=== PATIENT | female | born 1955 | race Caucasian/White ===

== ENCOUNTER 2018-08-31 23:41 | Inpatient (IN) | payer OTHER ==
[~2018-08-31] VITALS: Ht 170.2 cm; Wt 81.6 kg
--- OUTSIDE RECORDS SUMMARY | 2018-08-31 23:44 | XMS REPORT ---
Author [facility] Address Unknown Phone Unavailable Care Team Providers Care Coding Compliance Manager Name Role Phone Unavailable Unavailable Payers Payer Name Policy Type Policy Number Effective Date Expiration Date Problems This patient has no known problems. Allergies, Adverse Reactions, Alerts Allergy Name Allergy Type Status Severity Reaction(s) Onset Date Inactive Date Treating Clinician Comments Pentazocine Lactate DA Active [place] 2015-06-18 00:00:00 Penicillins DA Active [place] 2015-06-18 00:00:00 Sulfa (Sulfonamide Antibiotics) DA Active IA 2015-06-18 00:00:00 iodine DA Active [place] 2015-06-18 00:00:00 Medications This patient has no known medications. Results Test Description Test Time Test Comments Text Results Atomic Results Result Comments SCR MAMM BILATERAL CAD DIGITAL 2018-02-11 14:27:03 - SCR MAMM BILATERAL CAD DIGITALBILATERAL DIGITAL SCREENING MAMMOGRAM WITH CAD: 01/30/2018CLINICAL: Asymptomatic. Current mammographic images were evaluated by either a Thermedical M- Vu or a VMware ImageChecker CAD (computer aided detection system). Comparison is made to exam dated 03/31/2013 mammogram - [facility]. There are scattered fibroglandular tissues in both breasts. There are benign appearing calcifications and an intramammary node in the right breast. There also is a benign calcification in the left breast. No suspicious mass, architectural distortion, malignant type calcification, or lymph node abnormality detected. Breast architecture is stable compared to prior exams.IMPRESSION: BENIGNThere is no mammographic evidence of malignancy. Resume annual screening mammography in one year. Rossana covarrubias/hakeem:02/11/2018 14:27:03 Prison Warden: Twan [facility] sent: BIRADS 1-2 Normal Mammogram BI-RADS: 2 Benign
[2018-09-01] VITALS (9 sets, daily range): BP systolic 114–154; BP diastolic 57–82
[2018-09-01] MEDS ORDERED: ALBUTEROL SULF 0.083% NEB SOLN 3 ML NEB NEB STA (00:09)
--- NOTE | 2018-09-01 00:13 | NUR ---
DOUG, RT NOTIFIED OF NEBS
[2018-09-01] MEDS ORDERED: IPRATROPIUM BROMIDE 0.02% 2.5 ML NEB NEB ONE (00:15)
[2018-09-01] MEDS ORDERED: METHYLPREDNISOLONE SOD SUCC 125 MG/2ML VIAL IV ONE (00:15)
--- NOTE | 2018-09-01 00:17 | NUR ---
PT PLACED ON 2L NC SATS 97%
[2018-09-01 00:46] LABS: BILIRUBIN,URINE NEGATIVE (NEGATIVE); CLARITY,URINE CLOUDY (CLEAR); COLOR,URINE YELLOW (YELLOW); KETONES,URINE NEGATIVE (NEGATIVE); LEUKOCYTE ESTERASE ,URINE TRACE (NEGATIVE); NITRITE,URINE NEGATIVE (NEGATIVE); PROTEIN,URINE DIPSTICK 1+ (NEGATIVE); URINE UROBILINOGEN 4 mg/dL (0.2 - 1)
[2018-09-01 00:47] LABS: EOSINOPHILS # (AUTO) 0.1 (0.0-0.4); EOSINOPHILS % 1.3 % (0.0-6.0); LYMPHOCYTES # (AUTO) 1.3 (1.0-3.2); LYMPHOCYTES % 28.6 % (18.0-39.1); MEAN CORPUSCULAR HGB CONC 34.2 g/dL (31-35); MEAN CORPUSCULAR VOLUME 128.7 fL (81-99); MONOCYTES # (AUTO) 0.2 (0.2-0.8); MONOCYTES % 4.4 % (4.4-11.3); NEUTROPHILS # (AUTO) 2.9 (2.1-6.9); PLATELET COUNT 60 x10e3/uL (140-360); RED CELL DISTRIBUTION WIDTH 18.5 % (11.7-14.4)
[2018-09-01 00:56] LABS: INR 1.15; PROTHROMBIN TIME 15.3 seconds (11.9-14.5)
[2018-09-01 00:57] LABS: HEMATOCRIT 19.3 % (34.2-44.1); HEMOGLOBIN 6.6 g/dL (12.0-16.0); PARTIAL THROMBOPLASTIN TIME 39.1 seconds (23.8-35.5)
[2018-09-01 01:04] LABS: BACTERIA,URINE MANY /HPF; EPITHELIAL CELLS,URINE FEW /LPF; RENAL EPITHELIAL CELLS,URINE FEW; TRANSITIONAL EPI CELLS,URINE FEW; WBC,URINE (MAN) 21-50 /HPF (0-5)
[2018-09-01] MEDS ORDERED: PROAIR HFA INH8.5 GM INH (01:05)
[2018-09-01 01:08] LABS: ALANINE AMINOTRANSFERASE 14 IU/L (0-55); ALBUMIN 4.2 g/dL (3.5-5.0); ALBUMIN/GLOBULIN RATIO 1.8 (0.8-2.0); ALKALINE PHOSPHATASE 39 IU/L (40-150); ANION GAP 14.3 mmol/L (8-16); BLOOD UREA NITROGEN 7 mg/dL (7-26); BUN/CREATININE RATIO 11 (6-25); CALCIUM 9.3 mg/dL (8.4-10.2); CARBON DIOXIDE 28 mmol/L (22-29); CHLORIDE 101 mmol/L (98-107); CREATINE KINASE 27 IU/L (29-168); CREATININE, SERUM 0.64 mg/dL (0.57-1.11); EST GLOMERULAR FILTRATION RATE > 60 ML/MIN (60-); GLUCOSE 103 mg/dL (74-118); POTASSIUM 3.3 mmol/L (3.5-5.1); SODIUM 140 mmol/L (136-145)
[2018-09-01] MEDS ORDERED: SODIUM CHLORIDE 0.9% 250ML 250 ML IV ONE (01:15)
--- NOTE | 2018-09-01 01:19 | NUR ---
CONSENT OBTAINED FOR TRANSFUSION OF BLOOD
[2018-09-01] MEDS: NITROFURANTOIN MACROCRYSTALS 100 MG CAP PO SCH ×3 (01:28→17:37)
--- NOTE | 2018-09-01 01:32 | Diagnostic Imaging Report ---
EXAMINATION: CHEST SINGLE (PORTABLE) INDICATION: Short of breath , dizzy, wheezing COMPARISON: None FINDINGS: AP view TUBES and LINES: None. LUNGS: Lungs are well inflated. Lungs are clear. There is perihilar interstitial opacities, consistent with interstitial edema. PLEURA: Trace fluid in the right minor fissure. HEART AND MEDIASTINUM: Cardiac size is mildly enlarged. BONES AND SOFT TISSUES: No acute osseous lesion. Soft tissues are unremarkable. UPPER ABDOMEN: No free air under the diaphragm. IMPRESSION: Mild cardiomegaly and mild pulmonary interstitial edema. Signed by: Baldo Jose DO on 09/01/2018 1:29 AM
[2018-09-01] MEDS ORDERED: FUROSEMIDE INJ 10 MG/ML 4 ML VIAL IV ONE (01:45)
[2018-09-01] MEDS ORDERED: ONDANSETRON HCL INJ 2MG/ML 2ML 2 MG/ML VIAL IV PRN (01:45)
[2018-09-01] MEDS ORDERED: SODIUM CHLORIDE FLUSH 10 ML SYR INJ PRN (01:45)
[2018-09-01] MEDS ORDERED: FUROSEMIDE INJ 10 MG/ML 4 ML VIAL ONE (01:46)
--- NOTE | 2018-09-01 01:56 | NUR ---
pt placed on tele box 23
[2018-09-01] MEDS ORDERED: FUROSEMIDE INJ 10 MG/ML 2 ML VIAL IV ONE (02:00)
--- NOTE | 2018-09-01 02:42 | NUR ---
PATIENT RECEIVED FROM EMERGENCY DEPARTMENT PER STRETCHER AT 0155. SHE'S ALERT AND ORIENTED X4, SHE DENIES PAIN. WHEEZING WITH RHONCHI HEARD ON LUNGS SOUNDS, NON PRODUCTIVE COUGH NOTED AND PATIENT DENIES SHORTNESS OF BREATH. OXYGEN SATURATION 87% ON 2L/NC, SEVERAL DEEP BREATHS TAKEN WITH SATURATION INCREASED TO 90%. SKIN PALE, NO ACTIVE BLEEDING OBSERVED AND PATIENT DENIES VAGINAL OR RECTAL BLEED. ORIENTED TO SURROUNDINGS, CALL LIGHT WITHIN EASY REACH, BED SIDE COMMODE PROVIDED AND BED ALARM ON.
[2018-09-01] MEDS: ALBUTEROL/IPRATROPIUM 3 ML NEB NEB SCH ×6 (03:07→23:20)
--- NOTE | 2018-09-01 03:18 | NUR ---
FIRST UNIT OF BLOOD TRANSFUSION STARTED AT 88ML/HR, PATIENT TOLERATING THE TRANSFUSION WITHOUT ADVERSE EFFECT. WILL MONITOR CLOSELY PER PROTOCOL.
--- NOTE | 2018-09-01 06:48 | NUR ---
BLOOD TRANSFUSION COMPLETED WITHOUT ADVERSE EFFECT, PATIENT ASSISTED TO THE BEDSIDE COMMODE.
[2018-09-01] MEDS: METHYLPREDNISOLONE SOD SUCC 40 MG/ML VIAL 1ML IV SCH ×4 (06:57→23:45)
[2018-09-01] MEDS ORDERED: FUROSEMIDE INJ 10 MG/ML 2 ML VIAL IV PRN ×3 (07:00→13:30)
--- NOTE | 2018-09-01 07:00 | NUR ---
bedside rounds complete, report received from night rn, no distress noted, updated on poc voiced understanding, r ac 20g no ss of infiltration noted, denies pain at this time, call light in reach, bed low/locked position, bedalarm active, will continue to monitor
[2018-09-01 08:38] LABS: CREATINE KINASE 26 IU/L (29-168)
[2018-09-01] MEDS ORDERED: SODIUM CHLORIDE 0.9% 250ML 250 ML ONE (09:34)
--- NOTE | 2018-09-01 09:45 | NUR ---
2ND UNIT OF PRBC'S STARTED, PT MONITORED X 15MINS, TOLERATED WELL, NO SS OF RX NOTED ( CHEST PAIN, BACK PAIN, ITCHING,) NO OTHER CO VOICED CALL LIGHT IN REACH WILL CONTINUE TO MONITOR
[2018-09-01] MEDS ORDERED: POTASSIUM CHLORIDE 20 MEQ TAB CR PO ONE (14:52)
[2018-09-01] MEDS ORDERED: ALBUTEROL SULFATE HFA 8GM INHALATION AEROSOL INH PRN (15:00)
--- NOTE | 2018-09-01 15:49 | History and Physical ---
HISTORY OF PRESENT ILLNESS: The patient is a 63-year-old female with past medical history positive for smoking, history of ulcers in the stomach, came here with fatigue and shortness of breath. She was found to have severe anemia with a hemoglobin of 6.6. She received blood transfusion. She is feeling better. REVIEW OF SYSTEMS: CARDIOVASCULAR: She had chest pain when she came. RESPIRATORY: Shortness of breath. GASTROINTESTINAL: No nausea or vomiting. No diarrhea. No blood in the stool. No black stools. No hematemesis. GENITOURINARY: No frequency or dysuria. ALLERGIES: SHE IS ALLERGIC TO PENTAZOCINE, IODINE, SULFA DRUGS, AND PENICILLIN. SOCIAL HISTORY: She smokes. She does not drink. PAST MEDICAL HISTORY: Positive for peptic ulcer disease. PHYSICAL EXAMINATION: HEART: Regular rhythm. Normal S1, S2 sound. LUNGS: Clear bilaterally. ABDOMEN: Soft. EXTREMITIES: Show no evidence of cyanosis or hematoma. VITAL SIGNS: Blood pressure 152/82, temperature 96.8, heart rate 86 per minute, respiratory rate 18 per minute, and oxygen saturation 92%. LABORATORY STUDIES: On the CBC; white blood count 4.51, hemoglobin 6.6, hematocrit 19.3, platelet count 60,000. PT 15.3, PTT 39.1, INR 1.15. AST 57, ALT 14, total bilirubin 3.2, alkaline phosphatase 139. On the BMP; sodium 140, potassium 3.3, chloride 101, CO2 28, BUN 7, creatinine 0.64, glucose 103. IMPRESSION: 1. Acute anemia, rule out gastrointestinal bleed. 2. Atypical chest pain. 3. Chronic obstructive pulmonary disease exacerbation. PLAN OF TREATMENT: She received 2 units of blood. We are going to follow up CBC. We are going to do a workup for anemia, which include stool guaiac, iron, TIBC, ferritin, vitamin B12, folic acid levels. Gastroenterology consult with Dr. Jose Daniel Aggarwal. She is taking also albuterol and Atrovent q.4 hours, nitrofurantoin, she is taking 100 mg twice a day, Zofran 4 mg q.4 hours as needed, Solu-Medrol 40 mg IV q.6 hours, and we will replace potassium. We are going to recheck potassium, magnesium levels. Have a Cardiology consult with Dr. Leyva for the chest pain. Cardiac enzymes are negative. EKG normal. MD MARIYA Cisneros/RHODA /[id number]
[2018-09-01 16:11] LABS: HEMATOCRIT 23.2 % (34.2-44.1); HEMOGLOBIN 8.2 g/dL (12.0-16.0); LYMPHOCYTES # (AUTO) 0.4 (1.0-3.2); MEAN CORPUSCULAR HEMOGLOBIN 39.8 pg (28-32); MEAN CORPUSCULAR HGB CONC 35.3 g/dL (31-35); MEAN CORPUSCULAR VOLUME 112.6 fL (81-99); MONOCYTES # (AUTO) 0.1 (0.2-0.8); MONOCYTES % 1.1 % (4.4-11.3); NEUTROPHILS # (AUTO) 4.3 (2.1-6.9); NEUTROPHILS % 90.1 % (38.7-80.0); PLATELET COUNT 55 x10e3/uL (140-360); RED BLOOD COUNT 2.06 x10e6/uL (3.6-5.1)
[2018-09-01 16:16] LABS: CREATINE KINASE 33 IU/L (29-168)
[2018-09-01 16:44] LABS: FERRITIN 166.18 ng/mL (4.63-204.00)
[2018-09-01 19:21] LABS: HYPOCHROMASIA SLIGHT; LYMPHOCYTES % (MANUAL) 6 % (19-48); METAMYELOCYTES % (MANUAL) 1 % (0-0); NEUTROPHILS % (MANUAL) 92 % (40-74); PLATELET ESTIMATE MARKEDLY DECREASED; PLATELET MORPHOLOGY COMMENT NORMAL; POIKILOCYTOSIS SLIGHT; RBC MORPHOLOGY COMMENT NORMAL
--- NOTE | 2018-09-01 20:20 | NUR ---
PATIENT RESTING IN BED, SHE DENIES PAIN. WHEEZING AND RHONCHI HEARD ON LUNGS SOUNDS, NON PRODUCTIVE COUGH NOTED AND SHE DENIES SHORTNESS OF BREATH. NO EDEMA NOTED TO THE EXTREMITIES, CALL LIGHT WITHIN EASY REACH, SHE'S INSTRUCTED TO CALL FOR ASSISTANCE NEEDED.
[2018-09-01] MEDS ORDERED: CYANOCOBALAMIN INJ 1,000 MCG/ML VIAL IM ONE (22:30)
[2018-09-01] MEDS ORDERED: FOLIC ACID 1 MG TAB PO ONE (22:45)
[2018-09-02] VITALS (9 sets, daily range): BP systolic 105–135; BP diastolic 53–62
--- NOTE | 2018-09-02 00:37 | Consultation ---
DATE OF CONSULTATION: 09/01/2018 Cardiac consultation REASON FOR CONSULTATION: Chest pain. HISTORY: A 63-year-old lady, who is a smoker. The patient is also known to have "difficulty breathing at times." She takes ProAir p.r.n. She is relatively active. She is sick for the last 3 to 4 months. She is unable to do any activity if any. She does have severe shortness of breath and severe weakness. She came to here because she became very weak, unable to do much activity, quite debilitated, unable to do anything. She is having headache, dizziness and not feeling so well. In the ER, her hemoglobin was 6.6. Surprisingly, the patient denied having any black stool. She does have some discoloration of her stool, but she is on iron supplement as advised by her physician to get some iron [id number]. The patient also complained of chest pain, very vague in characteristic. It is worse recently with her anemia and her weakness. It is in form of chest tightness and shortness of breath and fast heart rate when she does activity. There is no orthopnea, no paroxysmal nocturnal dyspnea. There is no syncope or presyncope. There is no palpitation. Regarding her GI symptoms, she got vague colicky abdominal pain, but she denied having any hematemesis or melena. She claimed her symptoms progressive over the last few months. The patient following admission, she had 2 units packed red cells. She is feeling more comfortable. She is able to do more activity and she is feeling stronger. REVIEW OF SYSTEMS: GENERAL: No fever, no chills. No weight loss. No weight gain. HEENT: Allergies and hay fever, congestion. PULMONARY: Episodes of severe shortness of breath, mainly with change in weather and seasons. She need to take ProAir p.r.n. There is no pleuritic chest pain. CARDIAC: Chest pain on exertion with easy fatigability, shortness of breath and tightness and tachycardia. No orthopnea. No paroxysmal nocturnal dyspnea. GI: The patient denied having hematemesis or melena. No GERD symptoms. She does have vague abdominal colicky pain. : Increased frequency of urination. No dysuria. HEMATOLOGY: No easy bruising or bleeding. ENDOCRINE: No diabetes. ONCOLOGY: No weight loss. No weight gain. No fever. HOME MEDICATIONS: ProAir. ALLERGIES: PENTAZOCINE, IODINE, SULFA, AND PENICILLIN. PAST MEDICAL HISTORY: 1. Reactive airway disease and asthma like problems. 2. Cholecystectomy. 3. Tubal ligation. 4. Tonsillectomy. SOCIAL HISTORY: She is divorcee. She smoked one and half pack a day. She does not drink alcohol. FAMILY HISTORY: Father in his 60s with suicide. Mother of complication of diabetes mellitus and end-stage renal disease with polycystic disease, possible myocardial infarction. She had three brothers. She lost a brother with lung cancer and another brother to diabetes mellitus complication. One sister with few illnesses, but no coronary artery disease. Two children, one son, one daughter and one adopted child. PHYSICAL EXAMINATION: GENERAL: The patient looks to be pale and chronically ill. VITAL SIGNS: Height of 5 feet 7 inches, weight of 180 pounds. Blood pressure 140/60, heart rate of 80, respiratory rate of 18, afebrile. HEENT: Pupils are equal and reactive. NECK: No elevation of jugular venous pulsation. CHEST: Clear to auscultation and percussion. HEART: PMI 5th left intercostal space. Normal first and second heart sounds. ABDOMEN: Soft with good bowel sounds. No organomegaly. No abdominal bruit. EXTREMITIES: No cyanosis, no clubbing, no edema. No delay between pulses. NEUROLOGIC: Awake, alert, oriented. No motor or sensory deficits. LABORATORY DATA: EKG showing sinus tachycardia at 106. No ST-T segment changes. Hemoglobin on admission is 6.6, following transfusion at 8.2. BUN of 7, creatinine of 0.64. ALT and AST are normal. Chest x-ray by report showing mild cardiomegaly, mild interstitial changes. IMPRESSION AND PLAN: 1. Anemia, questionable etiology. 2. Symptomatic anemia leading to shortness of breath, chest tightness, tachycardia, etc. 3. Reactive airway disease, possible asthma. 4. Heavy smoker. 5. Probability of coronary artery disease. Cardiac burk, we will recommend observation on telemetry. The patient is cleared for GI workup, which should be at rest. Regarding her chest pain, this could be demand because of severe anemia and possible underlying heart disease, however, this will be addressed once the anemia and the patient's condition is stabilized. We will follow the patient's progression with you and would like to thank you for the kind referral. MD ELDER Pittman/RHODA /[id number]
[2018-09-02] MEDS: PANTOPRAZOLE 40 MG 10ML VIAL IV SCH ×2 (00:54→16:33)
--- NOTE | 2018-09-02 00:55 | NUR ---
PATIENT CONDITION STABLE, NO PAIN VOICED. 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
[2018-09-02] MEDS: ALBUTEROL/IPRATROPIUM 3 ML NEB NEB SCH ×6 (03:05→23:00)
--- NOTE | 2018-09-02 04:25 | NUR ---
PATIENT IS SOUNDLY ASLEEP, NO RESPIRATORY DISTRESS OBSERVED. SHE'S EASY TO AROUSE, SHE DENIES PAIN.
[2018-09-02] MEDS: METHYLPREDNISOLONE SOD SUCC 40 MG/ML VIAL 1ML IV SCH ×3 (06:31→16:44)
[2018-09-02 07:05] LABS: HEMOGLOBIN 7.1 g/dL (12.0-16.0); LYMPHOCYTES # (AUTO) 0.4 (1.0-3.2); LYMPHOCYTES % 6.3 % (18.0-39.1); MEAN CORPUSCULAR HEMOGLOBIN 40.3 pg (28-32); MEAN CORPUSCULAR HGB CONC 35.9 g/dL (31-35); MEAN CORPUSCULAR VOLUME 112.5 fL (81-99); MONOCYTES # (AUTO) 0.2 (0.2-0.8); MONOCYTES % 2.4 % (4.4-11.3); NEUTROPHILS # (AUTO) 5.6 (2.1-6.9); NEUTROPHILS % 90.3 % (38.7-80.0); PLATELET COUNT 58 x10e3/uL (140-360); RED BLOOD COUNT 1.76 x10e6/uL (3.6-5.1)
[2018-09-02 07:06] LABS: ALANINE AMINOTRANSFERASE 12 IU/L (0-55); ALBUMIN 3.8 g/dL (3.5-5.0); ALBUMIN/GLOBULIN RATIO 1.7 (0.8-2.0); ALKALINE PHOSPHATASE 32 IU/L (40-150); ANION GAP 13.1 mmol/L (8-16); BLOOD UREA NITROGEN 18 mg/dL (7-26); BUN/CREATININE RATIO 25 (6-25); CALCIUM 9.4 mg/dL (8.4-10.2); CARBON DIOXIDE 28 mmol/L (22-29); CHLORIDE 100 mmol/L (98-107); CREATININE, SERUM 0.72 mg/dL (0.57-1.11); EST GLOMERULAR FILTRATION RATE > 60 ML/MIN (60-); GLUCOSE 167 mg/dL (74-118); POTASSIUM 4.1 mmol/L (3.5-5.1); SODIUM 137 mmol/L (136-145)
[2018-09-02 07:11] LABS: HEMATOCRIT 19.8 % (34.2-44.1)
--- NOTE | 2018-09-02 07:15 | NUR ---
notified regarding critical lab of Hct 19.8 and Hgb 7.1. New orders received at this time.
[2018-09-02] MEDS ORDERED: SODIUM CHLORIDE 0.9% 250ML 250 ML IV ONE (07:30)
[2018-09-02] MEDS ORDERED: FOLIC ACID 1 MG TAB PO SCH (09:00)
[2018-09-02] MEDS ORDERED: CYANOCOBALAMIN INJ 1,000 MCG/ML VIAL IM SCH (09:00)
[2018-09-02] MEDS: NITROFURANTOIN MACROCRYSTALS 100 MG CAP PO SCH ×2 (09:48→16:47)
[2018-09-02] MEDS ORDERED: SODIUM CHLORIDE 0.9% 250ML 250 ML ONE ×2 (10:34→18:09)
--- NOTE | 2018-09-02 10:40 | NUR ---
First unit of blood being transfused at this time.
[2018-09-02] MEDS: TIOTROPIUM 18 MCG INH POWDER INH SCH (10:51)
[2018-09-02 12:37] LABS: LYMPHOCYTES % (MANUAL) 9 % (19-48); METAMYELOCYTES % (MANUAL) 1 % (0-0); MONOCYTES % (MANUAL) 1 % (3.4-9.0); NEUTROPHILS % (MANUAL) 89 % (40-74)
[2018-09-02 12:38] LABS: HYPOCHROMASIA MODERATE; PLATELET ESTIMATE MARKEDLY DECREASED; PLATELET MORPHOLOGY COMMENT FEW LARGE; RBC MORPHOLOGY COMMENT NORMAL
--- NOTE | 2018-09-02 13:49 | Diagnostic Imaging Report ---
EXAM: US ABDOMEN COMPLETE DATE: 09/02/2018 12:00 AM INDICATION: Cirrhosis, thrombocytopenia COMPARISON: None TECHNIQUE: Transverse and longitudinal galdamez scale and color doppler sonographic images of the upper abdomen were obtained. FINDINGS: There is no evidence of fluid or masses seen in the area of clinical concern in the right lower quadrant. LIVER 21.1 cm in the right midclavicular line. Increased parenchymal echogenicity of the liver with nodular surface contour, no masses. SPLEEN 13.8 cm in maximum diameter. Normal echogenicity, no masses. GALLBLADDER No gallbladder wall thickening, distension, stone, or pericholecystic fluid. NEgative reported sonographic Argueta's sign. BILE DUCTS No intra nor extra-hepatic biliary dilation. Common bile duct measures 0.4cm PANCREAS: Limited visualization due to overlying bowel gas. RIGHT KIDNEY: 11.0 cm Echogenicity: Normal Collecting System: No hydronephrosis Stones: None Cyst/Mass: None LEFT KIDNEY: 9.6 cm Echogenicity: Normal Collecting System: No hydronephrosis Stones: None Cyst/Mass: None VESSELS: Aorta: Visualized portions are within normal size limits Inferior Vena Cava: Visualized portions are normal Main Portal Vein: 1.6 cm, normal size with hepatopetal flow. FREE FLUID: None IMPRESSION: Hepatomegaly, cirrhotic liver contour, and hepatic steatosis. Mildly enlarged spleen. Signed by: Terrance Madera MD on 09/02/2018 1:45 PM
--- NOTE | 2018-09-02 14:25 | NUR ---
first unit of blood completed at this. Pt tolerated well. No s/s or adverse reactions noted.
--- NOTE | 2018-09-02 18:18 | Progress Note ---
DATE: 09/02/2018 Internal Medicine Progress Note SUBJECTIVE: The patient is feeling a little better. Some shortness of breath today. PHYSICAL EXAMINATION: HEART: Showed regular rhythm. Normal S1, S2 sound. LUNGS: Clear bilaterally. ABDOMEN: Soft. Bowel significantly decreased. LABORATORY DATA: On the BMP; sodium 137, potassium 4.1, chloride 100, CO2 of 28, BUN 18, creatinine 0.72, glucose 167. On the CBC; white blood count 6.19, hemoglobin 7.1, hematocrit 19.8, platelet count 58,000. PT 15.3, INR 1.15, PTT 39.1. AST 28, ALT 12, total bilirubin 2.3, alkaline phosphatase 32. FINAL IMPRESSION: 1. Acute anemia secondary to combination of vitamin B12 deficiency and cirrhosis of the liver. 2. Atypical chest pain. 3. Chronic obstructive pulmonary disease exacerbation. 4. Cirrhosis of the liver, most likely secondary to alcohol abuse. 5. Vitamin B12 deficiency. PLAN OF TREATMENT: We are going to get three more units of blood transfusion. Continue albuterol, Atrovent twice a day, Spiriva 1 inhalation daily. Continue Solu-Medrol 40 mg IV q.6 hours. Continue with vitamin B12 1000 mcg IM daily for a week, once a week for three weeks and once a month for lifetime. We are going to repeat another CBC tomorrow. Dr. Jose Daniel Aggarwal is on the case for Gastroenterology point of view, Dr. Chau Leyva for Cardiology point of view also. He did an echocardiogram, which showed normal ejection fraction. She needs saturation well below 87%. MD MARIYA Cisneros/RHODA /[id number]
--- NOTE | 2018-09-02 18:25 | NUR ---
Second unit of blood initiated at this time.
--- NOTE | 2018-09-02 19:35 | NUR ---
BLOOD TRANSFUSING WITHOUT ADVERSE EFFECT, NO PAIN VOICED. SKIN PALE, AUDIBLE WHEEZING AND RHONCHI HEARD ON LUNGS SOUNDS. NO EDEMA NOTED TO THE EXTREMITIES, CALL LIGHT WITHIN EASY REACH, INSTRUCTED TO CALL FOR ASSISTANCE NEEDED.
--- NOTE | 2018-09-02 20:54 | NUR ---
BLOOD TRANSFUSION COMPLETED WITHOUT ADVERSE EFFECT, PATIENT DENIES DIFFICULTY BREATHING. HOWEVER SHE HAS INCREASE AUDIBLE WHEEZING, WILL NOTIFY THE ATTENDING PHYSICIAN REGARDING LASIX ORDER.
[2018-09-02] MEDS ORDERED: FUROSEMIDE INJ 10 MG/ML 4 ML VIAL IV ONE (21:15)
[2018-09-03] VITALS (7 sets, daily range): BP systolic 122–164; BP diastolic 58–72
--- NOTE | 2018-09-03 00:23 | NUR ---
Pulmonary [id number] Thanks
[2018-09-03] MEDS: PANTOPRAZOLE 40 MG 10ML VIAL IV SCH (00:24)
[2018-09-03] MEDS: METHYLPREDNISOLONE SOD SUCC 40 MG/ML VIAL 1ML IV SCH (00:24)
--- NOTE | 2018-09-03 00:25 | NUR ---
PATIENT CONDITION STABLE, NO PAIN VOICED. DR BRYAN SAW THE PATIENT, NO NEW ORDER RECEIVED.
[2018-09-03] MEDS ORDERED: SODIUM CHLORIDE 0.9% 50ML 50 ML ONE (02:49)
[2018-09-03] MEDS: LEVOFLOXACIN 500MG/D5W 100ML 100 ML IV SCH (02:50)
[2018-09-03] MEDS: ALBUTEROL/IPRATROPIUM 3 ML NEB NEB SCH ×6 (03:15→23:05)
--- NOTE | 2018-09-03 04:00 | NUR ---
NO RESPIRATORY DISTRESS OBSERVED, PATIENT DENIES PAIN. ASSISTED WITH ADLS, CALL LIGHT WITHIN EASY REACH.
[2018-09-03] MEDS: TIOTROPIUM 18 MCG INH POWDER INH SCH (06:00)
--- NOTE | 2018-09-03 06:11 | Consultation ---
DATE OF CONSULTATION: 09/02/2018 Pulmonary Medicine Consult REASON FOR REFERRAL: Shortness of breath. HISTORY OF PRESENT ILLNESS: Ms. Miramontes is a pleasant 63-year-old female with shortness of breath. The patient was admitted to [facility] on September 02, 2018. The patient noted to have some chest tightness. The patient with associated shortness of breath was noted. She only takes ProAir p.r.n., which is from two times a day to twice a week. For last 3 months she is noticing worsening dyspnea. Prior to 3 months, she has unlimited exercise tolerance. The patient in the emergency room had hemoglobin 6.6, although without april bleeding. She was brought to the hospital, admitted and given blood transfusions. I am consulted. The patient does not have a definite diagnosis of COPD per her history. Per medicine, she has never been on home oxygen. She does not have history of asthma. There is intermittent allergies a few days to months. Based she does not take any allergy medicines. GERD is mild. She had echo with 55% to 60% LVEF. PAST MEDICAL HISTORY: Possible COPD, cholecystectomy, tubal ligation, and tonsillectomy. ALLERGIES: PENTAZOCINE, IODINE, SULFA, AND PENICILLIN. SOCIAL HISTORY: No alcohol. No drugs. The patient smoked from age 47 to 63, 1.5 packs per day. 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 She has been retired. The patient lives with a 15-year-old daughter right now. FAMILY HISTORY: 1. Noncontributory to this. 2. Her sister does have COPD. REVIEW OF SYSTEMS: GENERAL: No weight changes. OPHTHALMOLOGIC: No double vision. ENT: No mouth ulcers. ENDOCRINE: No known thyroid disease. LUNGS: No hemoptysis. CARDIAC: No heart attacks known. : No blood in urine. GI: No constipation. DERMATOLOGIC: No rashes. NEUROLOGIC: No seizures. PSYCHIATRIC: No depression. MUSCULOSKELETAL: Only mild arthritis. OBJECTIVE: VITAL SIGNS: Afebrile. Vital signs reviewed per the chart record unremarkable. HEENT: Normocephalic and atraumatic. NECK: Supple. Throat midline. LUNGS: Bilateral air entry is moderate with a few rhonchi, moderate amount heard. CARDIOVASCULAR: S1 and S2. No murmurs, rubs, or gallops. ABDOMEN: Soft and nontender. EXTREMITIES: No clubbing, no cyanosis, no edema. INTEGUMENT: No rash or purpura. Generally able to talk in full sentences, calm in bed. LABORATORY DATA: Labs reviewed per the chart record. Bicarbonate 20, BUN 18, and creatinine 0.7. white count 6, hematocrit 20, and platelets 58. IMAGING: Chest x-ray with mild cardiomegaly and moderate pulmonary interstitial edema. Abdominal ultrasound with hepatomegaly, cirrhosis, hepatic steatosis. IMPRESSION AND PLAN: 1. Dyspnea on exertion, progressive and now limiting. 2. Smoker, suspect chronic obstructive pulmonary disease. 3. Intermittent milder allergies. 4. Abnormal chest radiography, possible pneumonia. 5. Abnormal chest x-ray, possible fluid overload. 6. New diagnosis cirrhosis. 7. Anemia. Check BNP level. Slightly negative fluid balance if feasible. Blood transfusions. In summary, if she had symptoms for 3 months there is a significant chance that anemia could be contributory since it is interesting that this may not have been diagnosed before. However, there is a significant chance of COPD for which she will need outpatient PFTs. She wish to repeat a chest x-ray and if radiographic findings fail to resolve, she will need a CAT scan of the chest. She would consider smoking cessation and I counseled her on this. Check thyroid status. Check alpha-1 antitrypsin, HIV status. The patient has had recordings erratically of various oxygen saturations here in the hospital. She will need close follow her oxygen levels and even a home oxygen evaluation prior to discharge. We will follow up closely. Thank you very much, Dr. Palma for allowing me a chance to participate in care of Mrs. Miramontes. Do not hesitate to contact me if I can help in any way. MD COLLEEN Umaña/RHODA /[id number]
[2018-09-03 06:34] LABS: THYROID STIMULATING HORMONE 0.234 uIU/mL (0.350-4.940)
[2018-09-03 07:10] LABS: BASOPHILS % 0.1 % (0.0-1.0); HEMATOCRIT 24.8 % (34.2-44.1); HEMOGLOBIN 8.6 g/dL (12.0-16.0); LYMPHOCYTES # (AUTO) 0.6 (1.0-3.2); LYMPHOCYTES % 8.6 % (18.0-39.1); MEAN CORPUSCULAR HEMOGLOBIN 36.9 pg (28-32); MEAN CORPUSCULAR HGB CONC 34.7 g/dL (31-35); MEAN CORPUSCULAR VOLUME 106.4 fL (81-99); MONOCYTES # (AUTO) 0.2 (0.2-0.8); MONOCYTES % 2.9 % (4.4-11.3); NEUTROPHILS % 87.2 % (38.7-80.0); RED BLOOD COUNT 2.33 x10e6/uL (3.6-5.1)
[2018-09-03 07:22] LABS: PLATELET COUNT 36 x10e3/uL (140-360)
--- NOTE | 2018-09-03 07:29 | NUR ---
CHANGE OF SHIFT REPORT GIVEN TO THE ONCOMING NURSE, SHE'S TO FOLLOW UP ON THE PLATELET RESULT WITH THE PHYSICIAN.
[2018-09-03 08:29] LABS: HIV 1&2 AB SCREEN NON-REACTIVE (NONREACTIVE)
[2018-09-03] MEDS ORDERED: PREDNISONE 20 MG TAB PO SCH (09:00)
[2018-09-03] MEDS: CYANOCOBALAMIN INJ 1,000 MCG/ML VIAL IM SCH (09:17)
[2018-09-03] MEDS: MULTIVITAMINS/MINERALS TAB PO SCH (09:17)
[2018-09-03] MEDS: NITROFURANTOIN MACROCRYSTALS 100 MG CAP PO SCH ×2 (09:17→16:58)
[2018-09-03] MEDS: FOLIC ACID 1 MG TAB PO SCH (09:17)
--- NOTE | 2018-09-03 11:02 | Diagnostic Imaging Report ---
EXAMINATION: CHEST SINGLE (PORTABLE) INDICATION: CHF. COMPARISON: Chest radiograph 09/01/2018. FINDINGS: TUBES and LINES: None. LUNGS: Lungs are mildly hyperinflated. Mild perihilar and interstitial opacities. PLEURA: Trace right pleural effusion in the minor fissure. HEART AND MEDIASTINUM: The cardiomediastinal silhouette is mildly enlarged. BONES AND SOFT TISSUES: No acute osseous abnormality. UPPER ABDOMEN: No free air under the diaphragm. IMPRESSION: Mild pulmonary interstitial edema. Signed by: Dr. Juvencio Kramer MD on 09/03/2018 10:59 AM
[2018-09-03 11:57] LABS: BAND NEUTROPHILS % (MANUAL) 3 %; LYMPHOCYTES % (MANUAL) 8 % (19-48); MONOCYTES % (MANUAL) 3 % (3.4-9.0); NEUTROPHILS % (MANUAL) 86 % (40-74)
[2018-09-03 11:58] LABS: ANISOCYTOSIS MODERATE; PLATELET ESTIMATE MARKEDLY DECREASED; PLATELET MORPHOLOGY COMMENT NORMAL; POIKILOCYTOSIS S; RBC MORPHOLOGY COMMENT ABNORMAL
[2018-09-03] MEDS ORDERED: ONDANSETRON HCL 4 MG ORAL DISINTEGRATING TAB PO PRN (12:00)
--- NOTE | 2018-09-03 19:25 | Progress Note ---
DATE: 09/03/2018 Internal Medicine Progress Note SUBJECTIVE: The patient is doing better. PHYSICAL EXAMINATION: VITAL SIGNS: Blood pressure 164/70, temperature 97.8, heart rate 81 per minute, respiratory rate 20 per minute, oxygen saturation 96%. HEART: Showed regular rhythm. Normal S1, S2 sound. LUNGS: Clear bilaterally. ABDOMEN: Soft. LABORATORY DATA: On the blood work, we have BMP; sodium 137, potassium 4.1, chloride 100, CO2 28, BUN 18, creatinine 0.72, glucose 167. On the CBC; white blood count 6.89, hemoglobin 8.6, hematocrit 24.8, platelet count 136,000. PT 15.3, INR 1.15, PTT 39.1. AST 20, ALT 12, total bilirubin 2.3, alkaline phosphatase 32. IMPRESSION: 1. Acute anemia secondary to combination of vitamin B12 deficiency and cirrhosis of the liver. 2. Atypical chest pain. 3. Chronic obstructive pulmonary disease exacerbation. 4. Cirrhosis. 5. Vitamin B12 deficiency. PLAN OF TREATMENT: Continue albuterol and Atrovent q.4 hours. Continue Levaquin 500 mg IV daily, nitrofurantoin 100 mg twice a day, folic acid 1 mg daily, vitamin B12 100 mcg IM daily for a week, once a week for a month, and once a month for lifetime. Albuterol inhaler q.4 hours while awake, multivitamin one tablet daily. Continue Spiriva 1 inhalation daily, prednisone 20 mg daily, Zofran 4 mg IV q.4 hours as needed. The patient will have an EGD and colonoscopy done by Dr. Jose Daniel Aggarwal to complete the anemia workup. I explained to the patient the findings and the plan of treatment, so tentative discharge will be this weekend. Dr. Nelson Aggarwal is covering for me this week. MD MARIYA Cisneros/RHODA /[id number]
--- NOTE | 2018-09-03 19:51 | NUR ---
PATIENT SITTING AT THE SIDE OF THE BED, NO RESPIRATORY DISTRESS OBSERVED, SHE DENIES PAIN. NON PRODUCTIVE COUGH NOTED, RHONCHI HEARD ON LUNG SOUNDS. CALL LIGHT WITHIN EASY REACH, SHE'S INSTRUCTED TO CALL FOR ASSISTANCE NEEDED.
[2018-09-04] VITALS (8 sets, daily range): BP systolic 92–129; BP diastolic 52–69
[2018-09-04] MEDS: LEVOFLOXACIN 500MG/D5W 100ML 100 ML IV SCH (00:55)
--- NOTE | 2018-09-04 02:26 | NUR ---
Pulmonary Medicine DATE OF ENCOUNTER: 09/03/2018 SUBJECTIVE: sTABLE breathing 92-99% saturation 2 L/min oxygen CXR with stable edema mild pattern REVIEW OF SYSTEMS: no bleeding, no rash OBJECTIVE: VITAL SIGNS: Vital signs reviewed per the chart record HEENT: Normocephalic and atraumatic. NECK: Supple. Throat midline. LUNGS: Bilateral air entry moderate, few rhonchi CARDIOVASCULAR: S1 and S2. No murmurs, rubs, or gallops. ABDOMEN: Soft and nontender. EXTREMITIES: No clubbing, no cyanosis, no edema. INTEGUMENT: No rash or purpura. Generally able to talk in full sentences, calm in bed. LABORATORY DATA: 7 wbc, 25 hct, 36 plt LDH 3954, BNP 269, b12 13, folate 6.8, tsh low IMAGING: no new updates, except as above IMPRESSION AND PLAN: 1. Dyspnea on exertion, progressive and limiting. 2. Smoker, suspect chronic obstructive pulmonary disease. 3. Intermittent milder allergies. 4. Abnormal chest radiography, possible pneumonia. 5. Abnormal chest x-ray, possible fluid overload. 6. New diagnosis cirrhosis. 7. Anemia. 8. high ldh, low b12/folate/tsh recommend a metabolic evaluation of the patient serum lab abnormalities Slightly negative fluid balance if feasible. As the symptoms have lasted for 3 months there is a significant chance that anemia could be contributory. Due to the chance of COPD, she will need outpatient PFTs. Follow progress after blood transfusion Check chest CT Smoking cessation Follow up alpha-1 antitrypsin. HIV negative Some low oxygen saturations, wean oxygen as tolerated. Home O2 evaluation when time for discharge. Thank you very much, Dr. Palma for allowing me a chance to participate in care of Mrs. Miramontes. Do not hesitate to contact me if I can help in any way.
--- NOTE | 2018-09-04 02:49 | NUR ---
CONDITION STABLE WITHOUT RESPIRATORY DISTRESS. DR BRYAN MADE ROUNDS, NEW ORDER RECEIVED.
[2018-09-04] MEDS: ALBUTEROL/IPRATROPIUM 3 ML NEB NEB SCH ×6 (03:05→22:55)
--- NOTE | 2018-09-04 04:54 | NUR ---
Pulmonary Medicine DATE OF ENCOUNTER: 09/04/2018 SUBJECTIVE: profound blood test abnormalities patient on oxygen by CA now no respiratory distress eating REVIEW OF SYSTEMS: no headaches, no rash OBJECTIVE: VITAL SIGNS: Vital signs reviewed per the chart record GENERAL: NAD, calm HEENT: Normocephalic and atraumatic. NECK: Supple. Throat midline. LUNGS: Bilateral air entry moderate, few rhonchi CARDIOVASCULAR: S1 and S2. No murmurs, rubs, or gallops. ABDOMEN: Soft and nontender. EXTREMITIES: No clubbing, no cyanosis, no edema. INTEGUMENT: No rash or purpura. LABORATORY DATA: no new updates IMAGING: no new updates IMPRESSION AND PLAN: 1. Dyspnea on exertion, progressive and limiting. 2. Smoker, suspect chronic obstructive pulmonary disease. 3. Intermittent milder allergies. 4. Abnormal chest radiography, possible pneumonia. 5. Abnormal chest x-ray, possible fluid overload. 6. New diagnosis cirrhosis. 7. Anemia. 8. high ldh, low b12/folate/tsh recommend a metabolic evaluation of the patient serum lab abnormalities as per GI and hematology Slightly negative fluid balance if feasible. As the symptoms have lasted for 3 months there is a significant chance that anemia is the predominant contributor --due to profound findings, will hold off on much pulmonary assessment -----UNLESS patient remains significantly hypoxemic, as she is still on 3 l/min oxygen (can consider a CT chest) Due to the chance of COPD, she will need outpatient PFTs. Follow progress after blood transfusion Smoking cessation Follow up alpha-1 antitrypsin. HIV negative Some low oxygen saturations, wean oxygen as tolerated. Home O2 evaluation when time for discharge. Thank you very much, Dr. Palma for allowing me a chance to participate in care of Mrs. Miramontes. Do not hesitate to contact me if I can help in any way.
[2018-09-04 07:23] LABS: BILIRUBIN,DIRECT 0.9 mg/dL (0.0-0.5)
[2018-09-04] MEDS: TIOTROPIUM 18 MCG INH POWDER INH SCH (08:23)
[2018-09-04] MEDS: MULTIVITAMINS/MINERALS TAB PO SCH (09:29)
[2018-09-04] MEDS: CYANOCOBALAMIN INJ 1,000 MCG/ML VIAL IM SCH (09:29)
[2018-09-04] MEDS: PREDNISONE 20 MG TAB PO SCH (09:29)
[2018-09-04] MEDS: FOLIC ACID 1 MG TAB PO SCH (09:29)
[2018-09-04] MEDS: NITROFURANTOIN MACROCRYSTALS 100 MG CAP PO SCH ×2 (09:29→17:29)
--- NOTE | 2018-09-04 19:40 | NUR ---
PATIENT SITTING AT THE SIDE OF THE BED, NO RESPIRATORY DISTRESS OBSERVED. NO ACTIVE BLEED NOTED, SHE DENIES PAIN. CALL LIGHT WITHIN EASY REACH, SHE'S INSTRUCTED TO CALL FOR ASSISTANCE NEEDED.
[2018-09-05] VITALS (7 sets, daily range): BP systolic 95–120; BP diastolic 46–67
[2018-09-05] MEDS: LEVOFLOXACIN 500MG/D5W 100ML 100 ML IV SCH ×2 (00:28→23:39)
--- NOTE | 2018-09-05 00:32 | NUR ---
PATIENT ASLEEP, SHE'S EASY TO AROUSE. NO RESPIRATORY DISTRESS OBSERVED, SHE DENIES PAIN.
[2018-09-05] MEDS: ALBUTEROL/IPRATROPIUM 3 ML NEB NEB SCH ×6 (02:20→23:00)
--- NOTE | 2018-09-05 04:23 | NUR ---
ROUNDS MADE, PATIENT OBSERVED SOUNDLY ASLEEP WITHOUT RESPIRATORY DISTRESS. DR Monique BRYAN SAW THE PATIENT EARLIER, PLAN IS FOR PLATELET TRANSFUSION AND EGD ON THURSDAY.
[2018-09-05 05:30] LABS: EOSINOPHILS % 0.8 % (0.0-6.0); HEMATOCRIT 25.8 % (34.2-44.1); HEMOGLOBIN 8.7 g/dL (12.0-16.0); LYMPHOCYTES # (AUTO) 2.4 (1.0-3.2); LYMPHOCYTES % 48.9 % (18.0-39.1); MEAN CORPUSCULAR HGB CONC 33.7 g/dL (31-35); MEAN CORPUSCULAR VOLUME 109.8 fL (81-99); MONOCYTES # (AUTO) 0.4 (0.2-0.8); MONOCYTES % 8.6 % (4.4-11.3); NEUTROPHILS % 41.1 % (38.7-80.0); RED BLOOD COUNT 2.35 x10e6/uL (3.6-5.1)
[2018-09-05 05:38] LABS: PLATELET COUNT 33 x10e3/uL (140-360)
[2018-09-05 05:49] LABS: ALANINE AMINOTRANSFERASE 40 IU/L (0-55); ALBUMIN 3.5 g/dL (3.5-5.0); ALBUMIN/GLOBULIN RATIO 1.8 (0.8-2.0); ALKALINE PHOSPHATASE 33 IU/L (40-150); ANION GAP 11.2 mmol/L (8-16); BLOOD UREA NITROGEN 14 mg/dL (7-26); BUN/CREATININE RATIO 20 (6-25); CALCIUM 9.1 mg/dL (8.4-10.2); CARBON DIOXIDE 32 mmol/L (22-29); CHLORIDE 102 mmol/L (98-107); CREATININE, SERUM 0.69 mg/dL (0.57-1.11); EST GLOMERULAR FILTRATION RATE > 60 ML/MIN (60-); GLUCOSE 92 mg/dL (74-118); POTASSIUM 4.2 mmol/L (3.5-5.1); SODIUM 141 mmol/L (136-145)
[2018-09-05 07:56] LABS: EOSINOPHILS % (MANUAL) 1 % (0-7); LYMPHOCYTES % (MANUAL) 52 % (19-48); MONOCYTES % (MANUAL) 6 % (3.4-9.0); NEUTROPHILS % (MANUAL) 41 % (40-74)
[2018-09-05 07:57] LABS: PLATELET ESTIMATE MARKEDLY DECREASED; PLATELET MORPHOLOGY COMMENT NORMAL; RBC MORPHOLOGY COMMENT ABNORMAL
[2018-09-05 07:58] LABS: ANISOCYTOSIS MODERATE; HYPOCHROMASIA MODERATE
[2018-09-05] MEDS: TIOTROPIUM 18 MCG INH POWDER INH SCH (08:00)
[2018-09-05] MEDS: MULTIVITAMINS/MINERALS TAB PO SCH (08:53)
[2018-09-05] MEDS: NITROFURANTOIN MACROCRYSTALS 100 MG CAP PO SCH ×2 (08:53→17:13)
[2018-09-05] MEDS: FOLIC ACID 1 MG TAB PO SCH (08:53)
[2018-09-05] MEDS: CYANOCOBALAMIN INJ 1,000 MCG/ML VIAL IM SCH (08:53)
[2018-09-05] MEDS: PREDNISONE 20 MG TAB PO SCH (08:54)
[2018-09-05] MEDS ORDERED: DOCUSATE SODIUM 100 MG CAP PO PRN (09:30)
--- NOTE | 2018-09-05 11:14 | Progress Note ---
DATE: 09/05/2018 SUBJECTIVE: The patient has much less dyspnea. Her breathing is improved. She still has a low platelet count. PHYSICAL EXAMINATION: VITAL SIGNS: The patient is afebrile. The vital signs are stable. HEENT: Shows no facial swelling or erythema. CARDIAC: Reveals a regular rate and rhythm with a normal S1 and S2. LUNGS: Auscultation of lungs reveals clear breath sounds bilaterally. There is no wheezing. ABDOMEN: Soft, nontender. There is no rebound or guarding. EXTREMITIES: There is no leg edema. IMPRESSION: 1. Chronic obstructive pulmonary disease with acute exacerbation. 2. Thrombocytopenia. 3. Possible liver disease. PLAN: 1. The patient is scheduled for a platelet transfusion and a GI evaluation. 2. Taper steroids. 3. Wean oxygen. 4. Continue bronchodilators. Luis Armando Vance MD LM/MODL /[id number]
--- NOTE | 2018-09-05 17:38 | NUR ---
SPOKE WITH MD Masoud BRYAN WHO STATES HE WANTS TO GIVE A JUMBO BAG OF PLATELETS AN HOUR BEFORE EGD. ORDERS ON COMPUTER NOW . NOTIFIED LAB ABOUT PLATELET BAG ON HOLD WILL GET PT TO SIGN CONSENT AT THIS TIME
--- NOTE | 2018-09-05 18:45 | NUR ---
Report received from JOSUÉ Guerra at this time. Pt sleeping in bed at this time and appears to be in no distress. Call light is in reach of pt.
[2018-09-05] MEDS ORDERED: SODIUM CHLORIDE 0.9% 250ML 250 ML ONE (23:50)
[2018-09-05] MEDS ORDERED: PHYTONADIONE 10 MG/ML AMP SQ STA (23:55)
[2018-09-06] VITALS (7 sets, daily range): BP systolic 95–145; BP diastolic 51–65
--- NOTE | 2018-09-06 01:26 | NUR ---
Pt resting comfortably in bed. Pt denies pain. Bed is in low locked position and call light is in reach.
[2018-09-06] MEDS: ALBUTEROL/IPRATROPIUM 3 ML NEB NEB SCH ×6 (03:00→23:30)
[2018-09-06 05:50] LABS: EOSINOPHILS # (AUTO) 0.2 (0.0-0.4); HEMATOCRIT 25.8 % (34.2-44.1); HEMOGLOBIN 8.6 g/dL (12.0-16.0); LYMPHOCYTES # (AUTO) 1.6 (1.0-3.2); LYMPHOCYTES % 41.1 % (18.0-39.1); MEAN CORPUSCULAR HEMOGLOBIN 36.9 pg (28-32); MEAN CORPUSCULAR HGB CONC 33.3 g/dL (31-35); MEAN CORPUSCULAR VOLUME 110.7 fL (81-99); MONOCYTES # (AUTO) 0.5 (0.2-0.8); MONOCYTES % 12.6 % (4.4-11.3); NEUTROPHILS # (AUTO) 1.6 (2.1-6.9); NEUTROPHILS % 40.8 % (38.7-80.0); RED BLOOD COUNT 2.33 x10e6/uL (3.6-5.1)
[2018-09-06] MEDS: TIOTROPIUM 18 MCG INH POWDER INH SCH (06:00)
[2018-09-06 06:11] LABS: PLATELET COUNT 33 x10e3/uL (140-360)
--- NOTE | 2018-09-06 07:10 | NUR ---
Report given to JOSUÉ Berg at this time.
[2018-09-06] MEDS: CYANOCOBALAMIN INJ 1,000 MCG/ML VIAL IM SCH (08:45)
[2018-09-06] MEDS: MULTIVITAMINS/MINERALS TAB PO SCH (08:45)
[2018-09-06] MEDS: FOLIC ACID 1 MG TAB PO SCH (08:45)
[2018-09-06] MEDS: NITROFURANTOIN MACROCRYSTALS 100 MG CAP PO SCH ×2 (08:45→15:17)
[2018-09-06] MEDS: PREDNISONE 10 MG TAB PO SCH (08:45)
[2018-09-06] MEDS ORDERED: SODIUM CHLORIDE 0.9% 250ML 250 ML ONE (09:56)
[2018-09-06 10:49] LABS: LYMPHOCYTES % (MANUAL) 38 % (19-48); MONOCYTES % (MANUAL) 11 % (3.4-9.0); NEUTROPHILS % (MANUAL) 51 % (40-74)
[2018-09-06 10:51] LABS: PLATELET MORPHOLOGY COMMENT NORMAL; RBC MORPHOLOGY COMMENT ABNORMAL
[2018-09-06 10:52] LABS: ANISOCYTOSIS MODERATE; PLATELET ESTIMATE MARKEDLY DECREASED
--- NOTE | 2018-09-06 15:05 | Consultation ---
DATE OF CONSULTATION: 09/03/2018 HISTORY OF PRESENT ILLNESS: Ms. Miramontes is a 63-year-old white female, referred to me for evaluation of anemia and thrombocytopenia. The patient had presented with extreme weakness, subsequently was found to have a fairly low hemoglobin, subsequently referred for evaluation of anemia. The patient had progressive shortness of breath. SOCIAL HISTORY: History of excessive smoking. FAMILY HISTORY: Noncontributory. ALLERGIES: REPORTED: 1. PENTAZOCINE. 2. IODINE. 3. SULFA. 4. PENICILLIN. MEDICATIONS: At this time consists of: 1. Prednisone 10 mg a day. 2. Nitrofurantoin. 3. Multivitamin. 4. Folic acid. 5. Cyanocobalamin. 6. Albuterol inhalation. 7. Levaquin. REVIEW OF SYSTEMS: HEENT: Normal. CARDIAC: Normal. RESPIRATORY: History of shortness of breath. GI: At the present time, diagnosis of cirrhosis. : Normal. MUSCULOSKELETAL: Normal. SKIN: Normal. BREASTS: Normal. NEUROENDOCRINE: Normal. PHYSICAL EXAMINATION: GENERAL: Remarkable female, anemic, no palpable adenopathy. HEART: Within normal limits. LUNGS: Clear. BREASTS: Normal. ABDOMEN: Soft. RECTAL: Deferred. CENTRAL NERVOUS SYSTEM: Normal. EXTREMITIES: Essentially normal. LABORATORY DATA: Shows a hemoglobin of 6.6, hematocrit 19.3, extremely high MCV of 128.7, MCHC reported normal at 34.2, RDW slightly high at 18.5 with white count of 4510, differential 60% neutrophils. The patient is not spilling any immature forms. Platelets are low at 60,000. Chemistry shows a low vitamin B12 level of 13. The patient's bilirubin is high at 3.2, SGOT high at 57, SGPT 14, alkaline phosphatase is low at 39. The patient's LDH is high at 3954. TSH low at 0.234. The patient's total proteins are low at 5.4, albumin low at 1.9. Ultrasound of the abdomen shows cirrhotic liver, mildly enlarged spleen. IMPRESSION: 1. Pernicious anemia. 2. Thrombocytopenia because of cirrhosis of liver and also ineffective erythropoiesis. 3. Cardiomegaly with interstitial edema by chest x-ray. 4. Cirrhosis of liver. 5. Splenomegaly. 6. Hypocalcemia. 7. Hypoproteinemia. 8. Hypoalbuminemia. PLAN, COMMENTS, AND SUGGESTIONS: Suggest B12. Because of high LDH, MARKUS was done. The MARKUS was essentially negative. Retic count is low less than 3%. This is ineffective erythropoiesis and has a high LDH since the large cells cannot come out of the bone marrow and they burst open. Continue B12 every day 1000 mcg IM and after weekly, after monthly lifetime. The thrombocytopenia again is because of pernicious anemia and also cirrhosis of liver. GI consultation has been done. Thank you very much for allowing me to participate in management of this patient. I will confine myself to Hematology. I will follow this patient, as attending would call and make an appointment with me. MD TITO Perez/SEANL /[id number] cc: Jose Daniel Aggarwal MD
--- NOTE | 2018-09-06 15:30 | Operative Report ---
DATE OF PROCEDURE: 09/06/2018 SURGEON: Jose Daniel Aggarwal MD PROCEDURE: EGD with biopsies and esophageal dilatation. INDICATIONS FOR EGD: Dysphagia to solids, anemia. MEDICATIONS: The patient was done under MAC, please see anesthesiologist's note. PROCEDURE IN DETAIL: With the patient in left lateral decubitus position, flexible fiberoptic Olympus gastroscope was introduced into the esophagus under direct visualization without any difficulty. There was some patchy erythema noted in distal esophagus. A mild stricture was noted at the GE junction that was dilated to size 52-Macedonian Alvarez. The scope was then advanced with ease into the stomach traversing a moderate-sized hiatal hernia. The mucosa overlying the antrum and the body revealed some diffuse intense erythema and moderate edema. Biopsies were obtained, sent to stain for H pylori. A minute polyp was noted in the mid body along the greater curvature and that was partially excised with cold biopsy forceps. The pylorus was of normal contour and shape, it was intubated with ease and the scope was advanced all the way to the second portion of the duodenum. Biopsies were obtained from the second portion and duodenal bulb to rule out sprue. The scope was then withdrawn back into the stomach and retroflexed and the previously described hiatal hernia was also noted in the retroflexed position. The fundus overall appeared to be within normal limits. The scope was then straightened out, it was subsequently withdrawn patient tolerated the procedure well. IMPRESSION: 1. Distal esophagitis. 2. Esophageal stricture at GE junction, dilated to size 52-Macedonian Alvarez. 3. Moderate size hiatal hernia. 4. Gastritis, biopsied. Biopsies sent to stain for Helicobacter pylori. 5. Gastric polyp midbody, greater curvature, partially excised with the cold biopsy forceps. 6. Rule out sprue. PLAN: Follow up histology. Continue current therapy. The patient will need a colonoscopy which can be done electively on an outpatient basis. Jose Daniel Aggarwal MD [facility]/SEANL /[id number] cc: Morales Palma MD
--- NOTE | 2018-09-06 15:30 | Progress Note ---
DATE: 09/06/2018 Pulmonary Progress Note SUBJECTIVE: I am covering for Dr. Goodson today. The oxygen is decreased to 2 L. She is resting comfortably. She has an upper endoscopy that showed some gastritis. PHYSICAL EXAMINATION: VITAL SIGNS: Stable. HEENT: No facial swelling or erythema. CARDIAC: Regular rate and rhythm with a normal S1, S2. There are no murmurs or rubs. LUNGS: Auscultation of the lungs reveals clear breath sounds bilaterally. There is no wheezing. ABDOMEN: Soft, nontender. There is no rebound or guarding. IMPRESSION: 1. Cirrhosis of the liver from unclear etiology. 2. Thrombocytopenia. 3. Anemia secondary to chronic blood loss. 4. Chronic obstructive pulmonary disease. PLAN: 1. Complete evaluation for liver disease. 2. Await results of alpha-1 antitrypsin level. 3. Bronchodilators as needed. 4. Wean oxygen. 5. Outpatient pulmonary function tests. Luis Armando Vance MD [facility]/SEANL /[id number]
[2018-09-06] MEDS ORDERED: PROPOFOL IV EMULSION 10 MG/ML 20 ML VIAL ONE (18:01)
[2018-09-06] MEDS ORDERED: MIDAZOLAM HCL 2 MG/2 ML VIAL ONE (18:51)
[2018-09-06] MEDS ORDERED: FENTANYL CITRATE/PF 100MCG/2 ML INJ ONE (18:51)
--- NOTE | 2018-09-06 19:00 | NUR ---
RECEIVED PATIENT IN REPORT. PATIENT RESTING IN BED AT THIS TIME, RESPIRATIONS EVEN AND UNLABORED. NO S&S OF DISTRESS NOTED. BED LOCKED IN LOWEST POSITION. SIDE RAILS UPX2, CALL LIGHT IN REACH.
--- NOTE | 2018-09-06 19:10 | NUR ---
Report given to oncoming nurse of patient's status. Resting in bed with eyes closed. Respirations even and unlabored. Side rails upx2, call light within reach.
--- NOTE | 2018-09-06 20:06 | Progress Note ---
DATE: 09/06/2018 Internal Medicine Progress Note SUBJECTIVE: The patient is doing well. No significant complaint. She had an EGD today, which showed esophagitis and gastritis. PHYSICAL EXAMINATION: VITAL SIGNS: Blood pressure 111/53, temperature 36.4, heart rate 79 per minute, respiratory rate 16 per minute, and oxygen saturation 100%. HEART: Regular rhythm. Normal S1, S2 sound. LUNGS: Clear bilaterally. ABDOMEN: Soft. EXTREMITIES: No evidence of cyanosis or hematoma. LABORATORY DATA: Sodium 141, potassium 4.2, chloride 102, CO2 of 32, BUN 14, creatinine 0.69, glucose 92. On CBC; white blood count 3.97, hemoglobin 8.6, hematocrit 25.8, platelet count 33,000. PT 15.3, INR 1.15, PTT 39.1. AST 33, ALT 40, total bilirubin 1.3, alkaline phosphatase 33. IMPRESSION: 1. Chronic anemia secondary to vitamin B12 deficiency. 2. Vitamin B12 deficiency. 3. Cirrhosis of the liver. 4. Arthritis. 5. Esophagitis. 6. Chronic obstructive pulmonary disease exacerbation. PLAN OF TREATMENT: 1. Continue vitamin B12 supplementation 1000 mcg once a week for three weeks and once a month for lifetime. 2. Colace 100 mg twice a day. 3. She is taking nitrofurantoin 100 mg twice a day. 4. Continue folic acid 1 mg daily. 5. Prednisone 10 mg daily. 6. Albuterol q.4 hours while awake. 7. Albuterol and Atrovent q.4 hours. 8. Levaquin 500 mg IV once a day. 9. Multivitamin one tablet daily. 10. Spiriva 1 inhalation daily. 11. Zofran 4 mg IV q.4 hours as needed. 12. Continue monitoring hemoglobin and hematocrit. 13. The patient received platelet transfusion due to thrombocytopenia. 14. Tentative discharge tomorrow with vitamin B12 supplementation for lifetime. MD MARIYA Cisneros/RHODA /[id number]
--- NOTE | 2018-09-06 22:30 | NUR ---
PATIENT AMBULATING IN HALLWAY AT THIS TIME. STEADY GAIT NOTED.
[2018-09-07] VITALS: BP 115/56
[2018-09-07] MEDS: LEVOFLOXACIN 500MG/D5W 100ML 100 ML IV SCH (01:04)
[2018-09-07] MEDS: ALBUTEROL/IPRATROPIUM 3 ML NEB NEB SCH ×3 (02:50→10:45)
[2018-09-07 04:00] VITALS: BP 100/52
[2018-09-07 05:47] LABS: EOSINOPHILS # (AUTO) 0.2 (0.0-0.4); EOSINOPHILS % 4.5 % (0.0-6.0); HEMATOCRIT 26.1 % (34.2-44.1); HEMOGLOBIN 8.7 g/dL (12.0-16.0); LYMPHOCYTES # (AUTO) 1.5 (1.0-3.2); LYMPHOCYTES % 36.7 % (18.0-39.1); MEAN CORPUSCULAR HEMOGLOBIN 37.2 pg (28-32); MEAN CORPUSCULAR HGB CONC 33.3 g/dL (31-35); MEAN CORPUSCULAR VOLUME 111.5 fL (81-99); MONOCYTES # (AUTO) 0.6 (0.2-0.8); MONOCYTES % 13.7 % (4.4-11.3); NEUTROPHILS # (AUTO) 1.8 (2.1-6.9); NEUTROPHILS % 44.6 % (38.7-80.0); PLATELET COUNT 64 x10e3/uL (140-360); RED BLOOD COUNT 2.34 x10e6/uL (3.6-5.1)
[2018-09-07 06:09] LABS: ALANINE AMINOTRANSFERASE 20 IU/L (0-55); ALBUMIN 3.2 g/dL (3.5-5.0); ALBUMIN/GLOBULIN RATIO 1.5 (0.8-2.0); ALKALINE PHOSPHATASE 42 IU/L (40-150); ANION GAP 8.1 mmol/L (8-16); BLOOD UREA NITROGEN 14 mg/dL (7-26); BUN/CREATININE RATIO 22 (6-25); CALCIUM 8.6 mg/dL (8.4-10.2); CARBON DIOXIDE 30 mmol/L (22-29); CHLORIDE 103 mmol/L (98-107); CREATININE, SERUM 0.63 mg/dL (0.57-1.11); EST GLOMERULAR FILTRATION RATE > 60 ML/MIN (60-); GLUCOSE 97 mg/dL (74-118); POTASSIUM 4.1 mmol/L (3.5-5.1); SODIUM 137 mmol/L (136-145)
[2018-09-07 06:11] LABS: EOSINOPHILS % (MANUAL) 3 % (0-7); LYMPHOCYTES % (MANUAL) 31 % (19-48); MONOCYTES % (MANUAL) 5 % (3.4-9.0); NEUTROPHILS % (MANUAL) 61 % (40-74)
[2018-09-07 06:12] LABS: ANISOCYTOSIS S; PLATELET ESTIMATE MODERATELY DECREASED; PLATELET MORPHOLOGY COMMENT NORMAL; POIKILOCYTOSIS S; RBC MORPHOLOGY COMMENT NORMAL
[2018-09-07] MEDS: TIOTROPIUM 18 MCG INH POWDER INH SCH (06:58)
[2018-09-07] MEDS: NITROFURANTOIN MACROCRYSTALS 100 MG CAP PO SCH (07:57)
[2018-09-07] MEDS: CYANOCOBALAMIN INJ 1,000 MCG/ML VIAL IM SCH (07:57)
[2018-09-07] MEDS: FOLIC ACID 1 MG TAB PO SCH (07:57)
[2018-09-07] MEDS: PREDNISONE 10 MG TAB PO SCH (07:58)
[2018-09-07] MEDS: MULTIVITAMINS/MINERALS TAB PO SCH (07:58)
[2018-09-07 08:00] VITALS: BP 110/56
[2018-09-07 09:38] VITALS: BP 110/56
--- NOTE | 2018-09-07 12:55 | NUR ---
Patient states "I am ready to go. The doctor said I will be leaving today." Paged to receive clearance from GI standpoint
--- NOTE | 2018-09-07 13:40 | NUR ---
Patient remains insisting she is ready to go. Paged . aware nurse awaiting for Dr.M Aggarwal's response on clearance. Per. "patient may discharge, I will be sending rx to preferred pharmacy. Fax me pharmacy information." Information faxed to
[2018-09-07 13:47] VITALS: BP 124/56
--- NOTE | 2018-09-07 14:20 | NUR ---
Left FA IV discontinued. No signs of infiltration noted. 2x2 gauze and tape placed. Taken via wheelchair by PCT to personal car. AAOX4 to time, person, place, situation. Respirations even and unlabored. Discharge instructions and all personal belongings taken with patient. Patient aware rx will be faxed by 's office.
--- NOTE | 2018-09-07 17:11 | Discharge Summary ---
HOSPITAL COURSE: The patient is a 63-year-old female, who claimed that she has no past medical history, heavy smoker, history of hypertension. She was found to have severe anemia secondary to vitamin B12 deficiency. She had an EGD, which showed gastritis, esophagitis, but no evidence of any active bleeding. She has UTI. She got IV antibiotics. She was found to have cirrhosis of the liver. She claims that she never drank alcohol. She was seen by Dr. Jose Daniel Aggarwal for Gastroenterology, who did endoscopy, Dr. Walker for Hematology/Oncology, Dr. Goodson for Pulmonary. PHYSICAL EXAMINATION: HEART: Regular rhythm. Normal S1, S2 sound. LUNGS: Clear bilaterally. ABDOMEN: Soft. FINAL IMPRESSION: 1. Acute anemia secondary to vitamin B12 deficiency and combination of pancytopenia secondary to cirrhosis of the liver. 2. Chronic obstructive pulmonary disease. 3. Cirrhosis of the liver. 4. Urinary tract infection. PLAN OF TREATMENT: Continue current medication regimen. She will continue vitamin B12 supplementation 1000 mcg IM once a week for three weeks and once a month for lifetime. Continue albuterol and Atrovent as needed for shortness of breath. Continue with Lasix and Aldactone and Spiriva. The patient is told to follow up with Gastroenterology for a possibility of be placed on the list for liver transplant also. The patient is told to quit smoking also. Final impression, as I said is anemia secondary to vitamin B12 deficiency, cirrhosis of the liver, pancytopenia secondary to cirrhosis of the liver and vitamin B12 deficiency, and COPD. MD MARIYA Cisneros/RHODA /[id number]
[2018-09-22] MEDS ORDERED: FOLIC ACID PO (08:43)
[2018-09-22] MEDS ORDERED: vitamin B12 PO (08:43)
== END 2018-09-07 14:20 | disposition home or self-care (01) | DRG 811 ==
LOC: ER 23:41 → ERHOLD 09-01 01:45 → MED/SURG 09-01 02:39 → OBSVTOIN 09-02 13:50
PROVIDERS: ADMIT Internal Medicine; ATTEND Internal Medicine
PROC: 0DB68ZX Excision of Stomach, Via Natural or Artificial Opening Endoscopic, Diagnostic (ICD-10-PCS; principal; 2018-09-06 10:57)
PROC: 0DB98ZX Excision of Duodenum, Via Natural or Artificial Opening Endoscopic, Diagnostic (ICD-10-PCS; principal; 2018-09-06 10:57)
PROC: 0D748ZZ Dilation of Esophagogastric Junction, Via Natural or Artificial Opening Endoscopic (ICD-10-PCS; principal; 2018-09-06 10:57)
DX: D51.3 Other dietary vitamin B12 deficiency anemia (principal); I50.43 Acute on chronic combined systolic (congestive) and diastolic (congestive) heart failure; J44.1 Chronic obstructive pulmonary disease with (acute) exacerbation; N39.0 Urinary tract infection, site not specified; D61.818 Other pancytopenia; R07.89 Other chest pain; D50.0 Iron deficiency anemia secondary to blood loss (chronic); Z88.0 Allergy status to penicillin; Z88.2 Allergy status to sulfonamides; Z88.8 Allergy status to other drugs, medicaments and biological substances; Z91.041 Radiographic dye allergy status; F17.210 Nicotine dependence, cigarettes, uncomplicated; Z90.49 Acquired absence of other specified parts of digestive tract; Z82.49 Family history of ischemic heart disease and other diseases of the circulatory system; D69.6 Thrombocytopenia, unspecified; R16.1 Splenomegaly, not elsewhere classified; E83.51 Hypocalcemia; E77.8 Other disorders of glycoprotein metabolism; E88.09 Other disorders of plasma-protein metabolism, not elsewhere classified; K22.2 Esophageal obstruction; K44.9 Diaphragmatic hernia without obstruction or gangrene; K29.70 Gastritis, unspecified, without bleeding; K31.7 Polyp of stomach and duodenum; K70.30 Alcoholic cirrhosis of liver without ascites; F10.10 Alcohol abuse, uncomplicated; K21.0 Gastro-esophageal reflux disease with esophagitis; K52.9 Noninfective gastroenteritis and colitis, unspecified
CPT/HCPCS: 36415; 43239; 43450; 71045; 76700; 80053; 81001; 82103; 82248; 82390; 82550; 82553; 82607; 82728; 82746; 83516; 83540; 83615; 83735; 83880; 84155; 84443; 84466; 84484; 85025; 85045; 85610; 85730; 86022; 86039; 86255; 86850; 86880; 86900; 86920; 87086; 87390; 88305; 88312; 93005; 93306; 94640; 96367; 96372; 96374; 96375; 96376; 99284; G0378; G0433; G0435; J1940; J1956; J2250; J2920; J2930; J3010; J3420; J3430; J7050; J7512; P9016; P9034

== ENCOUNTER → 2018-09-29 | Day surgery (SDC) | payer OTHER ==
[2018-09-22 09:46] LABS: BASOPHILS # (AUTO) 0.1 (0.0-0.1); EOSINOPHILS # (AUTO) 0.2 (0.0-0.4); HEMATOCRIT 38.5 % (34.2-44.1); HEMOGLOBIN 12.6 g/dL (12.0-16.0); LYMPHOCYTES # (AUTO) 1.4 (1.0-3.2); LYMPHOCYTES % 27.7 % (18.0-39.1); MEAN CORPUSCULAR HEMOGLOBIN 34.8 pg (28-32); MEAN CORPUSCULAR HGB CONC 32.7 g/dL (31-35); MEAN CORPUSCULAR VOLUME 106.4 fL (81-99); MONOCYTES # (AUTO) 0.3 (0.2-0.8); MONOCYTES % 6.9 % (4.4-11.3); NEUTROPHILS % 60.2 % (38.7-80.0); PLATELET COUNT 209 x10e3/uL (140-360); RED BLOOD COUNT 3.62 x10e6/uL (3.6-5.1); RED CELL DISTRIBUTION WIDTH 18.6 % (11.7-14.4)
[2018-09-22 10:08] LABS: INR 0.94; PROTHROMBIN TIME 13.1 seconds (11.9-14.5)
[2018-09-22 10:09] LABS: PARTIAL THROMBOPLASTIN TIME 37.8 seconds (23.8-35.5)
[~2018-09-29] MED LIST: FENTANYL CITRATE/PF 100MCG/2 ML INJ ONE; FOLIC ACID PO; HYOSCYAMINE 0.125 MG TAB ONE; MIDAZOLAM HCL 2 MG/2 ML VIAL ONE; PROAIR HFA INH8.5 GM INH; PROPOFOL IV EMULSION 10 MG/ML 50 ML VIAL ONE; vitamin B12 PO
[2018-09-29 13:40] VITALS: BP 128/58
--- NOTE | 2018-09-29 19:56 | Operative Report ---
DATE OF PROCEDURE: SURGEON: Jose Daniel Aggarwal MD PROCEDURES: Colonoscopy and polypectomy. INDICATIONS FOR COLONOSCOPY: Colorectal cancer screening. MEDICATIONS: The patient was done under MAC, please see anesthesiologist's note. PROCEDURE IN DETAIL: With the patient in left lateral decubitus position, a flexible fiberoptic Olympus colonoscope was inserted into the rectum with ease and advanced all the way to the cecum. The sigmoid colon could only be negotiated with a pediatric colonoscope. The mucosa overlying the cecum appeared to be within normal limits. One polyp was hot biopsied, one polyp was snared from the ascending colon polypectomy site of the snared polyp was hemoclipped x2. In the transverse colon, 2 polyps were snared with the largest one hemoclipped x2. An approximately 1.5 cm sessile flat polyp was snared from the descending colon and polypectomy site, was hemoclipped x2 and also tattooed. An additional polyp was removed per snare electrocautery also from the descending colon. Diverticular disease was noted in the sigmoid. The rectum grossly appeared to be within normal limits. The scope was then retroflexed into the distal rectum and small internal hemorrhoids were noted, none of which was actively bleeding. The scope was then straightened out, it was subsequently withdrawn, and the patient tolerated the procedure well. IMPRESSION: 1. Ascending colon polyps, snared, one polypectomy site hemoclipped x2. 2. Transverse colon polyps x2, one polypectomy site hemoclipped x2. 3. Descending colon polyps x2, the largest approximately 1.5 cm in size, sessile, hemoclipped x2 and tattooed. 4. Diverticulosis. 5. Internal hemorrhoids, none actively bleeding. PLAN: Follow up histology. The patient will need a followup colonoscopy in 4 to 6 months to re-evaluate polypectomy sites in the ascending colon and the descending colon to remove any residual polypoid tissue. Jose Daniel Aggarwal MD [facility]/RHODA /[id number] cc: Morales Palma MD
== END | disposition home or self-care (01) ==
LOC: OR 09:23
PROVIDERS: ATTEND Internal Medicine Gastroenterology
DX: D12.4 Benign neoplasm of descending colon (principal); D64.9 Anemia, unspecified; J44.9 Chronic obstructive pulmonary disease, unspecified; K74.60 Unspecified cirrhosis of liver; Z88.2 Allergy status to sulfonamides; Z91.041 Radiographic dye allergy status; Z88.0 Allergy status to penicillin; Z91.013 Allergy to seafood; E53.8 Deficiency of other specified B group vitamins; F17.210 Nicotine dependence, cigarettes, uncomplicated; Z68.28 Body mass index [BMI] 28.0-28.9, adult; R03.0 Elevated blood-pressure reading, without diagnosis of hypertension; K63.5 Polyp of colon; K57.30 Diverticulosis of large intestine without perforation or abscess without bleeding; K64.8 Other hemorrhoids
CPT/HCPCS: 36415; 45381; 45384; 45385; 85025; 85610; 85730; J2250; J2704; J3010; 45378

== ENCOUNTER 2019-04-28 19:24 | Inpatient (IN) | payer OTHER ==
[~2019-04-28] VITALS: Ht 167.6 cm; Wt 81.7 kg
[~2019-04-28 19:24] MED LIST changes: +FAMOTIDINE20 MG PO; -FENTANYL CITRATE/PF 100MCG/2 ML INJ ONE; +FLAGYL500 MG PO; +Guaifenesin/Codeine PO; -HYOSCYAMINE 0.125 MG TAB ONE; +LEVAQUIN500 MG PO; -MIDAZOLAM HCL 2 MG/2 ML VIAL ONE; -PROPOFOL IV EMULSION 10 MG/ML 50 ML VIAL ONE; +PROTONIX40 MG/ML PO; +TESSALON PERLE100 MG PO
[2019-04-28] MEDS ORDERED: IPRATROPIUM BROMIDE 0.02% 2.5 ML NEB NEB STA (19:30)
[2019-04-28] MEDS ORDERED: ALBUTEROL SULF 0.083% NEB SOLN 3 ML NEB NEB STA (19:30)
[2019-04-28] MEDS ORDERED: METHYLPREDNISOLONE SOD SUCC 125 MG/2ML VIAL IV STA (19:30)
[2019-04-28 20:09] LABS: BASOPHILS % 0.3 % (0.0-1.0); EOSINOPHILS # (AUTO) 0.1 (0.0-0.4); EOSINOPHILS % 1.3 % (0.0-6.0); HEMATOCRIT 41.1 % (34.2-44.1); LYMPHOCYTES # (AUTO) 1.6 (1.0-3.2); LYMPHOCYTES % 20.6 % (18.0-39.1); MEAN CORPUSCULAR HEMOGLOBIN 31.5 pg (28-32); MEAN CORPUSCULAR HGB CONC 34.1 g/dL (31-35); MEAN CORPUSCULAR VOLUME 92.4 fL (81-99); MONOCYTES # (AUTO) 0.7 (0.2-0.8); MONOCYTES % 8.8 % (4.4-11.3); NEUTROPHILS # (AUTO) 5.5 (2.1-6.9); NEUTROPHILS % 68.7 % (38.7-80.0); PLATELET COUNT 249 x10e3/uL (140-360); RED BLOOD COUNT 4.45 x10e6/uL (3.6-5.1); RED CELL DISTRIBUTION WIDTH 13.1 % (11.7-14.4)
[2019-04-28 20:15] LABS: INR 1.02
[2019-04-28 20:16] LABS: PARTIAL THROMBOPLASTIN TIME 40.1 seconds (23.8-35.5)
[2019-04-28 20:22] LABS: ALANINE AMINOTRANSFERASE 13 IU/L (0-55); ALKALINE PHOSPHATASE 94 IU/L (40-150); ANION GAP 13.1 mmol/L (8-16); BLOOD UREA NITROGEN 8 mg/dL (7-26); BUN/CREATININE RATIO 11 (6-25); CALCIUM 9.9 mg/dL (8.4-10.2); CARBON DIOXIDE 30 mmol/L (22-29); CHLORIDE 100 mmol/L (98-107); CREATINE KINASE 38 IU/L (29-168); CREATININE, SERUM 0.73 mg/dL (0.57-1.11); EST GLOMERULAR FILTRATION RATE > 60 ML/MIN (60-); GLUCOSE 131 mg/dL (74-118); POTASSIUM 3.1 mmol/L (3.5-5.1); SODIUM 140 mmol/L (136-145)
--- NOTE | 2019-04-28 20:31 | Diagnostic Imaging Report ---
EXAMINATION: CHEST SINGLE (PORTABLE) INDICATION: ERMD ORDER COMPARISON: Chest x-ray and CT chest 02/24/2019 FINDINGS: AP view TUBES and LINES: None. LUNGS: Lungs are well inflated. Unchanged bilateral patchy consolidations suggestive of worsening multiple pneumonia. PLEURA: No pleural effusion or pneumothorax. HEART AND MEDIASTINUM: The cardiomediastinal silhouette is unremarkable. BONES AND SOFT TISSUES: No acute osseous lesion. Soft tissues are unremarkable. UPPER ABDOMEN: No free air under the diaphragm. IMPRESSION: Unchanged bilateral patchy consolidations suggestive of multiple pneumonia. Signed by: Ed Torres MD on 04/28/2019 8:29 PM
[2019-04-28 21:43] LABS: BILIRUBIN,URINE 1+ (NEGATIVE); CLARITY,URINE SL CLOUDY (CLEAR); COLOR,URINE STRAW (YELLOW); KETONES,URINE TRACE (NEGATIVE); LEUKOCYTE ESTERASE ,URINE NEGATIVE (NEGATIVE); NITRITE,URINE NEGATIVE (NEGATIVE); PROTEIN,URINE DIPSTICK 1+ (NEGATIVE); URINE UROBILINOGEN 8 mg/dL (0.2 - 1)
[2019-04-28 21:55] LABS: AMORPHOUS SEDIMENT,URINE MODERATE (FEW); BACTERIA,URINE FEW /HPF; EPITHELIAL CELLS,URINE FEW /LPF
[2019-04-28] MEDS ORDERED: LEVOFLOXACIN 750MG/D5W 150ML 150 ML IV ONE (22:45)
[2019-04-28] MEDS ORDERED: ACETAMINOPHEN 325 MG TAB PO PRN (23:45)
[2019-04-28] MEDS ORDERED: SODIUM CHLORIDE FLUSH 10 ML SYR INJ PRN (23:45)
[2019-04-29] MEDS: METHYLPREDNISOLONE SOD SUCC 40 MG/ML VIAL 1ML IV SCH ×5 (01:00→23:46)
[2019-04-29] MEDS: POTASSIUM CHLORIDE 20 MEQ TAB CR PO STA ×2 (01:00→01:09)
--- NOTE | 2019-04-29 01:00 | NUR ---
Pt moved to ED room 2, placed on hospital bed, remains on monitoring tech, call light in easy reach, bed low/locked, side rails up, will continue to monitor.
[2019-04-29] MEDS: IPRATROPIUM BROMIDE 0.02% 2.5 ML NEB NEB SCH ×5 (03:30→23:45)
[2019-04-29] MEDS: ALBUTEROL SULF 0.083% NEB SOLN 3 ML NEB NEB SCH ×6 (03:30→23:45)
[2019-04-29] MEDS ORDERED: POTASSIUM CHLORIDE 20 MEQ TAB CR PO STA (04:03)
[2019-04-29 04:39] LABS: CREATINE KINASE MB 1.5 ng/mL (0-5.0)
[2019-04-29 07:45] VITALS: BP 115/66
[2019-04-29 07:57] VITALS: BP 115/66
[2019-04-29] MEDS ORDERED: LEVOFLOXACIN 750MG/D5W 150ML IV SCH (09:00)
--- NOTE | 2019-04-29 10:17 | NUR ---
H&P cc: sob/cough HPI: 64yoF, PCP , developed sob/cough for few days; Found to have PNA. Pt recently treated for PNA. PMH: vit B12 anemia; anemia, COPD, cirrhosis, PUD, Acute resp failure, Left PNA, UTI, PSHx: cholecystectomy Allergies; see emr FH/SH; ; currently 2 cigs/day meds; see MAR ROS: no f/c/s/N/V/D/KEENAN/vision changes/back pain/dizziness v/s; revd PE tired appearing BIPAP mask in place ns1s2 COURSE BS soft nt nd no e/t skin dry n. affect labs/meds revd A/P: AECOPD- iv abx; antitussives/loratadine/nebs/O2 Bilateral Multi-lobar pneumonia- iv abx; Cirrhosis- f/u outpt PUD- ppi Physical deconditoning- PT consult Prop: seq/pepcid dispo: f/u; PT consult Oniel Chappell MD, PHD.
[2019-04-29] MEDS ORDERED: DOCUSATE SODIUM 100 MG CAP PO PRN (10:30)
[2019-04-29] MEDS ORDERED: ONDANSETRON HCL INJ 2MG/ML 2ML 2 MG/ML VIAL IV PRN (10:30)
[2019-04-29] MEDS ORDERED: ACETAMINOPHEN 325 MG TAB PO PRN (10:30)
[2019-04-29 11:12] LABS: CREATINE KINASE MB 1.9 ng/mL (0-5.0)
[2019-04-29 13:00] VITALS: BP 124/59
--- NOTE | 2019-04-29 13:00 | NUR ---
PATIENT RECEIVED FROM ER PER STRETCHER. ALERT AND VERBALLY RESPONSIVE, DENIED PAIN AT THIS TIME. SKIN WARM AND DRY TO TOUCH, RESPIRATION EVEN AND UNLABORED WITH O2 AT 2L VIA N/C; ABDOMEN SOFT AND NON DISTENDED. TELEMETRY B[address] BED IN LOWER POSITION, CALL LIGHT AT REACH. INSTRUCTED TO CALL FOR ASSISTANCE NEEDED.
[2019-04-29] MEDS ORDERED: SODIUM CHLORIDE 0.9% 250ML 250 ML ONE (14:16)
[2019-04-29] MEDS: VANCOMYCIN 1GM/NS 250 ML 250 ML IV SCH (14:21)
[2019-04-29] MEDS: AZTREONAM 1 GM/NS 50 ML 50 ML IV SCH ×2 (15:30→21:49)
--- NOTE | 2019-04-29 16:25 | NUR ---
PATIENT SITTING AT BED SIDE EATING SNACK, NO COMPLAIN VOICED. CALL LIGHT AT REACH.
[2019-04-29] MEDS: FAMOTIDINE 20 MG TAB PO SCH (16:30)
--- NOTE | 2019-04-29 17:03 | Diagnostic Imaging Report ---
CT of the chest, without contrast, 04/29/2019. History: Pneumonia. Comparison: Chest x-ray 04/28/2019, CT chest 02/24/2019. Technique: Multidetector CT scanning of the chest was performed from the level of the apices to the upper abdomen without contrast. Coronal and sagittal multiplanar reformations were obtained. RADIATION DOSE: Total DLP: 522 mGy*cm Dose modulation, iterative reconstruction, and/or weight based adjustment of the mA/kV was utilized to reduce the radiation dose to as low as reasonably achievable. Discussion: Evaluation is limited without IV contrast. Chest: The heart is normal in size but the main pulmonary artery is dilated measuring 3.3 cm in diameter. The thoracic aorta is within normal limits for size. Thyroid is unremarkable. A mildly enlarged pretracheal lymph node is present measuring 1.2 cm in short axis diameter, previously measuring 2 cm. Hilar and subcarinal nodes are less prominent. Scattered linear and subsegmental atelectasis are present throughout both lungs without focal consolidation or effusion. Multiple areas of centrilobular nodules previously described have mostly resolved. Limited evaluation of the upper abdomen shows normal adrenal glands. Moderate size hiatal hernia is noted. Bones and soft tissues: No acute abnormality. Degenerative changes are present in the thoracic spine. IMPRESSION: 1. Decreased mediastinal adenopathy. 2. Near resolution of previously seen diffuse centrilobular nodules with scattered areas of atelectasis remaining. No acute pulmonary findings. Signed by: Eliezer Gilbert on 04/29/2019 5:00 PM
--- NOTE | 2019-04-29 17:38 | Diagnostic Imaging Report ---
Modified barium swallow, 04/29/2019. History: Dysphagia. Fluoro time: 1 min. Dose: 1.4 mGy (MARGOTH) Discussion: Fluoroscopy was performed by pathology laboratory technologist. A radiologist was not present for exam. Fluoroscopic observation and imaging of the oral cavity, oropharynx, and hypopharynx was performed in the lateral projection during swallowing of liquids and solids, administered by speech pathology. See speech pathologist report for findings. Signed by: Eliezer Gilbert on 04/29/2019 5:36 PM
--- NOTE | 2019-04-29 19:00 | NUR ---
RECEIVED REPORT FROM DAY NURSE. BEDSIDE REPORT COMPLETE. PATIENT IS RESTING IN BED. BED IS IN LOWEST POSITION AND CALL STARR IS WITHIN REACH. WILL CONTINUE TO MONITOR PATIENT.
[2019-04-29 19:58] LABS: CREATINE KINASE MB 2.3 ng/mL (0-5.0)
[2019-04-29 20:00] VITALS: BP 128/60
[2019-04-29 20:23] VITALS: BP 128/60
--- NOTE | 2019-04-29 22:35 | Consultation ---
DATE OF CONSULTATION: Pulmonary Critical Care Consultation CHIEF COMPLAINT: Fever, dyspnea and congestion. HISTORY OF PRESENT ILLNESS: The patient is a 64-year-old woman. She has a history of liver disease and cirrhosis. She also has a history of COPD. She uses oxygen at home. She was hospitalized at [facility] in February with difficulty breathing and infiltrates on her x-ray. She had tree-in-bud appearance. CT scan is suggestive of atypical infection. She has been unable to follow up as an outpatient due to practical problems. She developed worsening cough and congestion. She subsequently came to the ER with worsening dyspnea. She reported fevers at home. She was found to have infiltrates again on her x-ray and was admitted. She was started on Solu-Medrol and antibiotics. PAST MEDICAL HISTORY: 1. Cirrhosis. 2. Peptic ulcer disease. 3. COPD. 4. Pulmonary infiltrates. 5. Anemia. PAST SURGICAL HISTORY: Noncontributory. SOCIAL HISTORY: The patient quit smoking. She is not an active drinker. ALLERGIES: THE PATIENT IS ALLERGIC TO SULFA, PENICILLINS, IODINE, AND SEAFOOD. FAMILY HISTORY: Noncontributory. REVIEW OF SYSTEMS: She did have some fever at home, but is not febrile here. She has no headache. She has no neck pain. She is not having any chest pain. She does note some cough and congestion. She has some phlegm production. She has dyspnea. She is not having any abdominal pain. She has no nausea or vomiting. She has no leg edema. PHYSICAL EXAMINATION: VITAL SIGNS: The patient is afebrile. Stable. Saturation is 98% on 4 L. HEENT: Shows no facial swelling or erythema. The oropharynx is normal. LYMPHATIC: Shows no submandibular, cervical, or supraclavicular adenopathy. CARDIAC: Reveals regular rate and rhythm with normal S1 and S2. LUNGS: Auscultation of lungs reveals rhonchi bilaterally. There are some crackles at the bases. ABDOMEN: Soft, nontender. There is no rebound or guarding. EXTREMITIES: Show no leg edema or calf tenderness. There is no cyanosis or clubbing. SKIN: Shows no rashes. NEUROLOGICAL: Shows no focal abnormalities. LABORATORY DATA: White blood cell count is 7.9 and hemoglobin is 14. The platelet count is 249. The BUN to creatinine ratio is normal. The other electrolytes within normal limits. RADIOGRAPHIC DATA: Chest x-ray shows persistent bilateral infiltrates. IMPRESSION: 1. Chronic obstructive pulmonary disease with acute exacerbation. 2. Persistent bilateral pulmonary infiltrates suggestive of possible atypical infection or interstitial atypical infection versus recurrent pneumonia. 3. Cirrhosis. 4. Hypokalemia. PLAN: 1. The patient will have repeat CT scan of the chest. 2. Continue Solu-Medrol and current antibiotics. 3. Pending on the CT scan. The patient may require an evaluation for atypical mycobacterial infection. 4. Swallowing evaluation through speech therapy. 5. Continue current regimen for cirrhosis. Luis Armando Vance MD [facility] /[id number]
[2019-04-29] MEDS: ZOLPIDEM TARTRATE 5 MG TAB PO PRN (23:46)
[2019-04-30] VITALS (8 sets, daily range): BP systolic 105–137; BP diastolic 55–63
[2019-04-30] MEDS: ALBUTEROL SULF 0.083% NEB SOLN 3 ML NEB NEB SCH ×6 (03:00→23:25)
[2019-04-30] MEDS: AZTREONAM 1 GM/NS 50 ML 50 ML IV SCH ×3 (05:22→21:08)
[2019-04-30] MEDS: METHYLPREDNISOLONE SOD SUCC 40 MG/ML VIAL 1ML IV SCH ×3 (05:22→21:08)
--- NOTE | 2019-04-30 06:50 | NUR ---
REPORT GIVEN TO DAY NURSE. PATIENT IS RESTING COMFORTABLY IN BED. BED IS IN LOWEST POSITION AND CALL STARR IS WITHIN REACH.
--- NOTE | 2019-04-30 07:12 | NUR ---
PATIENT SITTING UP IN BED PLAYING ON HER PHONE, NO S/S OF DISCOMFORT NOTED. CALL LIGHT AT REACH.
[2019-04-30] MEDS: FAMOTIDINE 20 MG TAB PO SCH ×2 (07:30→17:06)
[2019-04-30] MEDS: IPRATROPIUM BROMIDE 0.02% 2.5 ML NEB NEB SCH ×3 (07:30→19:50)
--- NOTE | 2019-04-30 11:20 | NUR ---
PATIENT AMBULATING IN HALLWAY WITH FAMILY MEMBERS, NO DISTRESS NOTED.
--- NOTE | 2019-04-30 12:01 | NUR ---
IM- progress note O/N see below ROS: no f/c/s/N/V/D/KEENAN/vision changes/back pain/dizziness v/s; revd PE tired appearing BIPAP mask in place ns1s2 COURSE BS soft nt nd no e/t skin dry n. affect labs/meds revd A/P: AECOPD- iv abx; antitussives/loratadine/nebs/O2 Bilateral Multi-lobar pneumonia- iv abx; Cirrhosis- f/u outpt PUD- ppi Physical deconditoning- PT consult Prop: seq/pepcid dispo: f/u; PT consult 04/29 cont care. labs tomorrow Oniel Chappell MD, PHD.
[2019-04-30] MEDS: VANCOMYCIN 1GM/NS 250 ML 250 ML IV SCH (12:04)
[2019-04-30] MEDS ORDERED: ALBUTEROL SULFATE HFA 8GM INHALATION AEROSOL INH PRN (14:00)
--- NOTE | 2019-04-30 14:17 | Progress Note ---
DATE: SUBJECTIVE: The patient states feels better. She has less wheezing. She did have some epigastric pain yesterday. PHYSICAL EXAMINATION: VITAL SIGNS: The patient is afebrile. The vital signs are stable. CARDIAC: Reveals regular rate and rhythm with normal S1 and S2. LUNGS: Auscultation of lungs reveals expiratory wheezing bilaterally. ABDOMEN: Soft and nontender. There is no rebound or guarding. EXTREMITIES: Shows no leg edema or calf tenderness. There is no cyanosis or clubbing. SKIN: Shows no rashes. NEUROLOGICAL: Shows no focal abnormalities. RADIOGRAPHIC DATA: Chest x-ray shows new resolution of previously seen infiltrates. The patient does have emphysema. LABORATORY DATA: Troponin I's are negative. The BUN to creatinine ratio is normal. The white blood cell count is 7.3 and the hemoglobin is 14. The platelet count is 249. IMPRESSION: 1. Chronic obstructive pulmonary disease with acute exacerbation. 2. Cirrhosis. 3. Hypokalemia. PLAN: 1. Continue Solu-Medrol. 2. Continue current antibiotics and await culture results. 3. Continue current liver regimen with input from GI. Luis Armando Vance MD [facility] /[id number]
--- NOTE | 2019-04-30 15:22 | NUR ---
OUT OF BED TO CHAIR TALKING TO FAMILY MEMBER VISITING. CALL LIGHT AT REACH.
[2019-05-01] VITALS (8 sets, daily range): BP systolic 100–134; BP diastolic 50–80
[2019-05-01] MEDS: IPRATROPIUM BROMIDE 0.02% 2.5 ML NEB NEB SCH ×4 (01:55→19:45)
[2019-05-01] MEDS: ALBUTEROL SULF 0.083% NEB SOLN 3 ML NEB NEB SCH ×6 (01:55→23:00)
[2019-05-01] MEDS: AZTREONAM 1 GM/NS 50 ML 50 ML IV SCH ×3 (05:58→20:35)
--- NOTE | 2019-05-01 06:49 | NUR ---
REPORT GIVEN TO DAY NURSE. PATIENT IS RESTING COMFORTABLY IN BED. BED IS IN LOWEST POSITION AND CALL STARR IS WITHIN REACH.
--- NOTE | 2019-05-01 07:10 | NUR ---
PATIENT OUT OF BED TO CHAIR WATCHING TV, NO COMPLAIN VOICED. O2 IN PLACE VIA N/C. CALL LIGHT AT REACH.
[2019-05-01 07:43] LABS: BASOPHILS % 0.2 % (0.0-1.0); EOSINOPHILS % 0.2 % (0.0-6.0); HEMATOCRIT 37.4 % (34.2-44.1); HEMOGLOBIN 12.2 g/dL (12.0-16.0); LYMPHOCYTES # (AUTO) 1.5 (1.0-3.2); LYMPHOCYTES % 12.8 % (18.0-39.1); MEAN CORPUSCULAR HEMOGLOBIN 31.2 pg (28-32); MEAN CORPUSCULAR HGB CONC 32.6 g/dL (31-35); MEAN CORPUSCULAR VOLUME 95.7 fL (81-99); MONOCYTES # (AUTO) 0.4 (0.2-0.8); MONOCYTES % 3.1 % (4.4-11.3); NEUTROPHILS # (AUTO) 9.4 (2.1-6.9); NEUTROPHILS % 82.7 % (38.7-80.0); PLATELET COUNT 276 x10e3/uL (140-360); RED BLOOD COUNT 3.91 x10e6/uL (3.6-5.1); RED CELL DISTRIBUTION WIDTH 13.4 % (11.7-14.4)
[2019-05-01] MEDS: FAMOTIDINE 20 MG TAB PO SCH ×2 (07:50→17:11)
[2019-05-01 08:03] LABS: ANION GAP 12.2 mmol/L (8-16); BLOOD UREA NITROGEN 13 mg/dL (7-26); BUN/CREATININE RATIO 20 (6-25); CALCIUM 9.4 mg/dL (8.4-10.2); CARBON DIOXIDE 28 mmol/L (22-29); CHLORIDE 105 mmol/L (98-107); CREATININE, SERUM 0.64 mg/dL (0.57-1.11); EST GLOMERULAR FILTRATION RATE > 60 ML/MIN (60-); GLUCOSE 123 mg/dL (74-118); MAGNESIUM 1.9 MG/DL (1.3-2.1); POTASSIUM 4.2 mmol/L (3.5-5.1); SODIUM 141 mmol/L (136-145)
[2019-05-01] MEDS: METHYLPREDNISOLONE SOD SUCC 40 MG/ML VIAL 1ML IV SCH ×2 (09:11→20:35)
--- NOTE | 2019-05-01 09:21 | NUR ---
IM- progress note O/N see below ROS: no f/c/s/N/V/D/KEENAN/vision changes/back pain/dizziness v/s; revd PE tired appearing BIPAP mask in place ns1s2 COURSE BS soft nt nd no e/t skin dry n. affect labs/meds revd A/P: AECOPD- iv abx; antitussives/loratadine/nebs/O2 Bilateral Multi-lobar pneumonia- iv abx; Cirrhosis- f/u outpt PUD- ppi Physical deconditoning- PT consult Prop: seq/pepcid dispo: f/u; PT consult 04/29 cont care. labs tomorrow 04/30 cont care; Oniel Chappell MD, PHD.
--- NOTE | 2019-05-01 11:23 | NUR ---
TELEMETRY DISCONTINUED ORDERED. PATIENT IN BED RESTING WITH NO S/S OF DISCOMFORT.
[2019-05-01] MEDS: VANCOMYCIN 1GM/NS 250 ML 250 ML IV SCH (12:30)
--- NOTE | 2019-05-01 14:16 | Progress Note ---
DATE: SUBJECTIVE: The patient feels better. She has less dyspnea and wheezing. PHYSICAL EXAMINATION: VITAL SIGNS: The patient is afebrile. The vital signs are stable. HEENT: Shows no facial swelling or erythema. CARDIAC: Reveals regular rate and rhythm with normal S1 and S2. LUNGS: Auscultation of lungs reveals clear breath sounds bilaterally. There is no wheezing. ABDOMEN: Soft and nontender. There is no rebound or guarding. EXTREMITIES: Shows no leg edema or calf tenderness. IMPRESSION: 1. Chronic obstructive pulmonary disease with acute exacerbation. 2. Cirrhosis. PLAN: 1. Taper steroids. 2. Continue oxygen. 3. Continue current regimen for cirrhosis. Luis Armando Vance MD [facility] /[id number]
--- NOTE | 2019-05-01 15:37 | NUR ---
IV INFILTRATED, REMOVED WITH TIP INTACT. NEW IV 22 GAUGE INSERTED TO RIGHT FOREARM. PATIENT TOLERATED PROCEDURE WELL.
[2019-05-01] MEDS: ZOLPIDEM TARTRATE 5 MG TAB PO PRN (23:46)
[2019-05-02] VITALS: BP 133/59
[2019-05-02] MEDS: IPRATROPIUM BROMIDE 0.02% 2.5 ML NEB NEB SCH ×2 (01:00→05:15)
[2019-05-02] MEDS: ALBUTEROL SULF 0.083% NEB SOLN 3 ML NEB NEB SCH ×2 (03:00→05:15)
[2019-05-02 04:00] VITALS: BP 139/64
[2019-05-02] MEDS: AZTREONAM 1 GM/NS 50 ML 50 ML IV SCH (05:35)
[2019-05-02] MEDS ORDERED: PREDNISONE20 MG PO (05:49)
[2019-05-02] MEDS ORDERED: ZITHROMAX500 MG PO (05:49)
[2019-05-02] MEDS ORDERED: LORATADINE10 MG PO (05:49)
--- NOTE | 2019-05-02 05:55 | NUR ---
D/C Summary Principal Dx: AECOPD- iv abx; antitussives/loratadine/nebs/O2 Bilateral Multi-lobar pneumonia- iv abx; Secondary Dx Cirrhosis- f/u outpt PUD- ppi Physical deconditoning- PT consult Prop: seq/pepcid dispo: f/u; PT consult 04/29 cont care. labs tomorrow 04/30 cont care; d/c home stable f/u pcp 1 week d/c>35mins Oniel Chappell MD, PHD.
[2019-05-02 06:23] LABS: BASOPHILS % 0.2 % (0.0-1.0); HEMATOCRIT 36.9 % (34.2-44.1); HEMOGLOBIN 12.1 g/dL (12.0-16.0); LYMPHOCYTES # (AUTO) 1.6 (1.0-3.2); LYMPHOCYTES % 18.5 % (18.0-39.1); MEAN CORPUSCULAR HEMOGLOBIN 31.3 pg (28-32); MEAN CORPUSCULAR HGB CONC 32.8 g/dL (31-35); MEAN CORPUSCULAR VOLUME 95.3 fL (81-99); MONOCYTES # (AUTO) 0.4 (0.2-0.8); MONOCYTES % 4.1 % (4.4-11.3); NEUTROPHILS # (AUTO) 6.4 (2.1-6.9); NEUTROPHILS % 75.8 % (38.7-80.0); PLATELET COUNT 274 x10e3/uL (140-360); RED BLOOD COUNT 3.87 x10e6/uL (3.6-5.1); RED CELL DISTRIBUTION WIDTH 13.4 % (11.7-14.4)
[2019-05-02 06:46] LABS: ANION GAP 11.2 mmol/L (8-16); BLOOD UREA NITROGEN 10 mg/dL (7-26); BUN/CREATININE RATIO 16 (6-25); CARBON DIOXIDE 30 mmol/L (22-29); CHLORIDE 104 mmol/L (98-107); CREATININE, SERUM 0.64 mg/dL (0.57-1.11); EST GLOMERULAR FILTRATION RATE > 60 ML/MIN (60-); GLUCOSE 126 mg/dL (74-118); MAGNESIUM 1.8 MG/DL (1.3-2.1); POTASSIUM 4.2 mmol/L (3.5-5.1); SODIUM 141 mmol/L (136-145)
--- NOTE | 2019-05-02 07:04 | NUR ---
PATIENT SITTING UP IN BED WATCHING TV, NO DISTRESS NOTED. BED IN LOWER POSITION, CALL LIGHT AT REACH.
--- NOTE | 2019-05-02 07:09 | NUR ---
REPORT GIVEN TO DAY NURSE. PATIENT IS RESTING COMFORTABLY IN BED. BED IS IN LOWEST POSITION AND CALL STARR IS WITHIN REACH.
[2019-05-02] MEDS: FAMOTIDINE 20 MG TAB PO SCH (07:30)
[2019-05-02 07:50] VITALS: BP 115/56
[2019-05-02 07:52] VITALS: BP 115/56
[2019-05-02] MEDS: METHYLPREDNISOLONE SOD SUCC 40 MG/ML VIAL 1ML IV SCH (08:45)
--- NOTE | 2019-05-02 09:15 | NUR ---
PATIENT DISCHARGED HOME. DISCHARGE INSTRUCTIONS, PRESCRIPTIONS, AND FOLLOW UP GIVEN TO PATIENT, SHE VERBALIZED UNDERSTANDING. IV TO RIGHT FOREARM REMOVED WITH TIP INTACT. ALL PERSONAL ITEMS TAKEN WITH PATIENT. REFUSED WHEEL CHAIR, BUT WAS ACCOMPANIED TO FRONT LOBBY BY HOSPITAL STAFF IN STABLE CONDITION.
== END 2019-05-02 09:10 | disposition home or self-care (01) | DRG 190 ==
LOC: ER 19:24 → ERHOLD 23:42 → MED/SURG3 04-29 12:50
PROVIDERS: ADMIT Internal Medicine; ATTEND Internal Medicine
DX: J44.1 Chronic obstructive pulmonary disease with (acute) exacerbation (principal); J18.1 Lobar pneumonia, unspecified organism; J44.0 Chronic obstructive pulmonary disease with (acute) lower respiratory infection; Z87.01 Personal history of pneumonia (recurrent); K27.9 Peptic ulcer, site unspecified, unspecified as acute or chronic, without hemorrhage or perforation; K74.60 Unspecified cirrhosis of liver; E87.6 Hypokalemia
CPT/HCPCS: 36415; 71045; 71250; 74230; 80048; 80053; 81001; 82550; 82553; 83735; 83880; 84132; 84484; 85025; 85610; 85730; 87040; 87400; 93005; 99284; J2920; J2930; J3370; J7050

== ENCOUNTER → 2019-12-21 | Outpatient (CLI) | payer OTHER ==
[~2019-12-21] MED LIST changes: +LORATADINE10 MG PO; +PREDNISONE20 MG PO; +ZITHROMAX500 MG PO
--- NOTE | 2019-12-21 11:04 | Diagnostic Imaging Report ---
CT of the chest, without contrast. History: COPD, cough, right middle lobe atelectasis. Comparison: CT chest without contrast from 04/29/2019, 02/24/2019. Technique: Multidetector CT scanning of the chest was performed from the level of the apices to the upper abdomen without contrast. Coronal and sagittal multiplanar reformations were obtained. RADIATION DOSE: Total DLP: 593.04 mGy*cm Dose modulation, iterative reconstruction, and/or weight based adjustment of the mA/kV was utilized to reduce the radiation dose to as low as reasonably achievable. FINDINGS: The thyroid and remaining visualized structures of the base the neck demonstrate no significant abnormalities. The thoracic aorta is normal in course and caliber with atherosclerotic calcifications within its course and branch vessels including the coronary arteries.. The heart is not enlarged. There is no abnormal pericardial fluid present. The main pulmonary artery is prominent measuring 3.4 cm in diameter, unchanged. There are stable mildly prominent mediastinal lymph nodes. A precarinal lymph node measures 1.2 cm in short axis, previously 1.2 cm. There is no abnormal axillary or hilar lymph node enlargement. The trachea and proximal airways are patent. Bandlike opacity noted within the right middle lobe suggestive of subsegmental atelectasis. There has been interval resolution of the previously identified centrilobular nodular opacities. There is no evidence for large focal consolidation, pneumothorax, new/suspicious nodule, or pleural effusion. Moderate size hiatal hernia again noted. Limited views of the upper abdominal contents otherwise demonstrate no significant abnormalities. The osseous structures demonstrate stable degenerative changes without evidence for acute fracture or destructive process. The extrathoracic soft tissues are unremarkable. IMPRESSION: Bandlike opacity identified within the right middle lobe suggestive of subsegmental atelectasis. No evidence for large focal consolidation or other acute intrathoracic process. Resolution of previously visualized centrilobular nodular opacities. Signed by: Dr. Micah Martel MD on 12/21/2019 11:01 AM
== END ==
LOC: CT 09:50
PROVIDERS: ATTEND Internal Medicine Critical Care Medicine
DX: R05 Cough (principal); J98.11 Atelectasis; J44.9 Chronic obstructive pulmonary disease, unspecified
CPT/HCPCS: 71250

== ENCOUNTER 2020-07-02 17:04 | Inpatient (IN) | payer OTHER ==
[~2020-07-02] VITALS: Ht 170.2 cm; Wt 88.9 kg
[2020-07-02] MEDS: ALBUTEROL/IPRATROPIUM 3 ML NEB NEB SCH (00:15)
[~2020-07-02 17:04] MED LIST changes: +vitamin B12 IM; -vitamin B12 PO
[2020-07-02] MEDS ORDERED: ALBUTEROL SULF 0.083% NEB SOLN 3 ML NEB NEB STA (17:28)
[2020-07-02] MEDS ORDERED: IPRATROPIUM BROMIDE 0.02% 2.5 ML NEB NEB ONE (17:30)
[2020-07-02] MEDS ORDERED: METHYLPREDNISOLONE SOD SUCC 125 MG/2ML VIAL IV ONE (17:30)
[2020-07-02 17:44] LABS: HEMATOCRIT 48.1 % (34.2-44.1); HEMOGLOBIN 15.2 g/dL (12.0-16.0); MEAN CORPUSCULAR VOLUME 95.1 fL (81-99); RED BLOOD COUNT 5.06 x10e6/uL (3.6-5.1)
[2020-07-02 17:45] LABS: BASOPHILS # (AUTO) 0.1 (0.0-0.1); BASOPHILS % 0.4 % (0.0-1.0); EOSINOPHILS # (AUTO) 0.1 (0.0-0.4); EOSINOPHILS % 0.7 % (0.0-6.0); LYMPHOCYTES # (AUTO) 1.5 (1.0-3.2); LYMPHOCYTES % 9.8 % (18.0-39.1); MEAN CORPUSCULAR HGB CONC 31.6 g/dL (31-35); MONOCYTES # (AUTO) 1.1 (0.2-0.8); MONOCYTES % 7.3 % (4.4-11.3); NEUTROPHILS # (AUTO) 12.1 (2.1-6.9); NEUTROPHILS % 81.3 % (38.7-80.0); PLATELET COUNT 221 x10e3/uL (140-360); RED CELL DISTRIBUTION WIDTH 15.3 % (11.7-14.4)
[2020-07-02 18:05] LABS: ALBUMIN 3.5 g/dL (3.5-5.0); ALBUMIN/GLOBULIN RATIO 0.9 (0.8-2.0); CALCIUM 9.5 mg/dL (8.4-10.2); CREATININE, SERUM 0.97 mg/dL (0.57-1.11)
[2020-07-02] MEDS ORDERED: ASPIRIN 81 MG CHEW TAB PO ONE (18:15)
[2020-07-02] MEDS ORDERED: ASPIRIN 81 MG CHEW TAB PO STA (20:40)
[2020-07-02] MEDS ORDERED: SODIUM CHLORIDE FLUSH 10 ML SYR INJ PRN (20:45)
[2020-07-02] MEDS ORDERED: DOXYCYCLINE 100MG/NS 100ML 100 ML IV SCH (21:00)
[2020-07-02] MEDS: ACETAMINOPHEN 325 MG TAB PO PRN (21:32)
[2020-07-02 21:35] LABS: CLARITY,URINE CLEAR (CLEAR); COLOR,URINE AMBER (YELLOW); KETONES,URINE TRACE (NEGATIVE); LEUKOCYTE ESTERASE ,URINE NEGATIVE (NEGATIVE); NITRITE,URINE NEGATIVE (NEGATIVE); PROTEIN,URINE DIPSTICK 1+ (NEGATIVE); URINE UROBILINOGEN >=8 mg/dL (0.2 - 1)
[2020-07-02 21:46] LABS: AMORPHOUS SEDIMENT,URINE FEW (FEW); BACTERIA,URINE MODERATE /HPF
[2020-07-02 22:15] VITALS: BP 132/79
[2020-07-02] MEDS ORDERED: VITAMIN D PO (22:33)
[2020-07-02 22:38] VITALS: BP 132/79
[2020-07-02] MEDS: METHYLPREDNISOLONE SOD SUCC 40 MG/ML VIAL 1ML IV SCH (23:38)
[2020-07-03] VITALS (9 sets, daily range): BP systolic 133–152; BP diastolic 73–87
[2020-07-03] MEDS: ALBUTEROL/IPRATROPIUM 3 ML NEB NEB SCH ×6 (03:25→23:25)
[2020-07-03] MEDS: METHYLPREDNISOLONE SOD SUCC 40 MG/ML VIAL 1ML IV SCH ×2 (05:44→15:51)
[2020-07-03 05:59] LABS: BASOPHILS % 0.1 % (0.0-1.0); HEMATOCRIT 45.3 % (34.2-44.1); HEMOGLOBIN 14.6 g/dL (12.0-16.0); LYMPHOCYTES # (AUTO) 0.4 (1.0-3.2); LYMPHOCYTES % 4.3 % (18.0-39.1); MEAN CORPUSCULAR HEMOGLOBIN 30.2 pg (28-32); MEAN CORPUSCULAR HGB CONC 32.2 g/dL (31-35); MEAN CORPUSCULAR VOLUME 93.6 fL (81-99); MONOCYTES # (AUTO) 0.1 (0.2-0.8); MONOCYTES % 1.1 % (4.4-11.3); NEUTROPHILS # (AUTO) 8.2 (2.1-6.9); PLATELET COUNT 217 x10e3/uL (140-360); RED BLOOD COUNT 4.84 x10e6/uL (3.6-5.1); RED CELL DISTRIBUTION WIDTH 14.8 % (11.7-14.4)
[2020-07-03] MEDS: ACETAMINOPHEN 325 MG TAB PO PRN (06:03)
[2020-07-03 06:15] LABS: ANION GAP 16.6 mmol/L (8-16); BLOOD UREA NITROGEN 26 mg/dL (7-26); BUN/CREATININE RATIO 28 (6-25); CALCIUM 9.9 mg/dL (8.4-10.2); CARBON DIOXIDE 28 mmol/L (22-29); CHLORIDE 98 mmol/L (98-107); CREATININE, SERUM 0.92 mg/dL (0.57-1.11); EST GLOMERULAR FILTRATION RATE > 60 ML/MIN (60-); GLUCOSE 231 mg/dL (74-118); POTASSIUM 3.6 mmol/L (3.5-5.1); SODIUM 139 mmol/L (136-145)
[2020-07-03 06:45] LABS: CREATINE KINASE MB 4.6 ng/mL (0-5.0)
[2020-07-03] MEDS: ASPIRIN 81 MG CHEW TAB PO SCH (08:26)
[2020-07-03] MEDS ORDERED: HYDRALAZINE HCL 20 MG/ML VIAL IV PRN (09:30)
[2020-07-03] MEDS ORDERED: ONDANSETRON HCL INJ 2MG/ML 2ML 2 MG/ML VIAL IV PRN (09:30)
[2020-07-03] MEDS ORDERED: MELATONIN 5 MG TABLET PO PRN (09:30)
[2020-07-03] MEDS ORDERED: CEFTRIAXONE SOD 1 GM VIAL IV SCH (09:45)
[2020-07-03] MEDS: CEFTRIAXONE SOD 1 GM in SODIUM CHLORIDE 0.9% 50ML 50 ML IV SCH (11:54)
[2020-07-03] MEDS: AZITHROMYCIN 500MG/NS 250 ML 250 ML IV SCH (11:54)
[2020-07-03] MEDS ORDERED: SODIUM CHLORIDE 0.9% 250ML 250 ML ONE (12:03)
[2020-07-03] MEDS ORDERED: FUROSEMIDE INJ 10 MG/ML 2 ML VIAL IV ONE (13:00)
[2020-07-03 13:56] LABS: CREATINE KINASE MB 5.5 ng/mL (0-5.0)
[2020-07-03] MEDS: FAMOTIDINE 20 MG TAB PO SCH (15:50)
[2020-07-03] MEDS: FUROSEMIDE INJ 10 MG/ML 4 ML VIAL IV SCH (20:07)
[2020-07-03] MEDS ORDERED: ALBUTEROL SULFATE HFA 8GM INHALATION AEROSOL INH PRN (20:15)
[2020-07-03] MEDS ORDERED: POTASSIUM CHLORIDE 20 MEQ TAB CR PO ONE (21:00)
[2020-07-04] VITALS: BP 135/74
[2020-07-04] MEDS: ALBUTEROL/IPRATROPIUM 3 ML NEB NEB SCH ×3 (03:05→11:01)
[2020-07-04 04:00] VITALS: BP 126/74
[2020-07-04] MEDS: METHYLPREDNISOLONE SOD SUCC 40 MG/ML VIAL 1ML IV SCH (05:27)
[2020-07-04 05:45] LABS: BASOPHILS % 0.1 % (0.0-1.0); HEMATOCRIT 43.5 % (34.2-44.1); HEMOGLOBIN 13.9 g/dL (12.0-16.0); LYMPHOCYTES # (AUTO) 0.9 (1.0-3.2); LYMPHOCYTES % 9.4 % (18.0-39.1); MEAN CORPUSCULAR HEMOGLOBIN 29.7 pg (28-32); MEAN CORPUSCULAR VOLUME 92.9 fL (81-99); MONOCYTES # (AUTO) 0.6 (0.2-0.8); MONOCYTES % 5.9 % (4.4-11.3); NEUTROPHILS # (AUTO) 8.4 (2.1-6.9); NEUTROPHILS % 84.1 % (38.7-80.0); PLATELET COUNT 253 x10e3/uL (140-360); RED BLOOD COUNT 4.68 x10e6/uL (3.6-5.1); RED CELL DISTRIBUTION WIDTH 14.8 % (11.7-14.4)
[2020-07-04 06:17] LABS: ANION GAP 13.7 mmol/L (8-16); BLOOD UREA NITROGEN 24 mg/dL (7-26); BUN/CREATININE RATIO 28 (6-25); CALCIUM 10.1 mg/dL (8.4-10.2); CARBON DIOXIDE 34 mmol/L (22-29); CHLORIDE 97 mmol/L (98-107); CREATININE, SERUM 0.85 mg/dL (0.57-1.11); EST GLOMERULAR FILTRATION RATE > 60 ML/MIN (60-); GLUCOSE 149 mg/dL (74-118); POTASSIUM 4.7 mmol/L (3.5-5.1); SODIUM 140 mmol/L (136-145)
[2020-07-04 08:02] VITALS: BP 147/79
[2020-07-04] MEDS: FAMOTIDINE 20 MG TAB PO SCH (08:02)
[2020-07-04] MEDS: FUROSEMIDE INJ 10 MG/ML 4 ML VIAL IV SCH (08:03)
[2020-07-04] MEDS: ASPIRIN 81 MG CHEW TAB PO SCH (08:03)
[2020-07-04] MEDS: CEFTRIAXONE SOD 1 GM in SODIUM CHLORIDE 0.9% 50ML 50 ML IV SCH (08:04)
[2020-07-04] MEDS: AZITHROMYCIN 500MG/NS 250 ML 250 ML IV SCH (08:55)
[2020-07-04] MEDS ORDERED: POTASSIUM CHLORIDE 20 MEQ TAB CR PO SCH (09:00)
[2020-07-04] MEDS ORDERED: METOPROLOL TARTRATE 25 MG TAB PO SCH (09:00)
[2020-07-04 12:14] VITALS: BP 137/75
[2020-07-04] MEDS ORDERED: MELATONIN5 M2 PO (12:42)
[2020-07-04] MEDS ORDERED: PREDNISONE5 MG PO (12:42)
[2020-07-04] MEDS ORDERED: Albuterol/Ipratropium Nebulize NEB (12:42)
[2020-07-04] MEDS ORDERED: VENTOLIN HFA18 GM INH (12:42)
[2020-07-04] MEDS ORDERED: CEFUROXIME500 MG PO (12:42)
[2020-07-04] MEDS ORDERED: ASPIRIN CHEW81 MG PO (12:42)
[2020-07-04] MEDS ORDERED: LOPRESSOR25 MG PO (12:42)
[2020-07-04] MEDS ORDERED: AZITHROMYCIN500 MG PO (12:42)
[2020-07-04] MEDS ORDERED: LASIX20 MG PO (20:16)
== END 2020-07-04 13:21 | disposition home or self-care (01) | DRG 190 ==
LOC: ER 17:10 → ERHOLD 20:43 → MED/SURG3 21:07
PROVIDERS: ADMIT Internal Medicine; ATTEND Internal Medicine
DX: J44.1 Chronic obstructive pulmonary disease with (acute) exacerbation (principal); J96.21 Acute and chronic respiratory failure with hypoxia; I50.31 Acute diastolic (congestive) heart failure; I21.A1 Myocardial infarction type 2; K74.60 Unspecified cirrhosis of liver; D69.6 Thrombocytopenia, unspecified; R73.9 Hyperglycemia, unspecified; Z88.2 Allergy status to sulfonamides; Z88.8 Allergy status to other drugs, medicaments and biological substances; Z88.0 Allergy status to penicillin; Z91.013 Allergy to seafood; Z99.81 Dependence on supplemental oxygen; Z90.49 Acquired absence of other specified parts of digestive tract; D64.9 Anemia, unspecified; K21.9 Gastro-esophageal reflux disease without esophagitis; Z20.822 Contact with and (suspected) exposure to COVID-19
CPT/HCPCS: 36415; 70450; 71045; 71250; 80048; 80053; 81001; 82550; 82553; 83880; 84484; 85025; 93005; 93306; 94640; 99285; J0456; J0696; J1940; J2920; J2930; J7050; U0002

== ENCOUNTER 2020-07-20 18:52 | Emergency (ER) | payer OTHER ==
[~2020-07-20] VITALS: Ht 170.2 cm; Wt 88.9 kg
[~2020-07-20 18:52] MED LIST changes: +ASPIRIN CHEW81 MG PO; +AZITHROMYCIN500 MG PO; +Albuterol/Ipratropium Nebulize NEB; +CEFUROXIME500 MG PO; +LASIX20 MG PO; +LOPRESSOR25 MG PO; +MELATONIN5 M2 PO; +PREDNISONE5 MG PO; +VENTOLIN HFA18 GM INH; +VITAMIN D PO
[2020-07-20 20:22] LABS: BASOPHILS % 0.3 % (0.0-1.0); EOSINOPHILS # (AUTO) 0.1 (0.0-0.4); EOSINOPHILS % 0.6 % (0.0-6.0); HEMATOCRIT 46.3 % (34.2-44.1); HEMOGLOBIN 14.8 g/dL (12.0-16.0); LYMPHOCYTES # (AUTO) 1.1 (1.0-3.2); LYMPHOCYTES % 10.7 % (18.0-39.1); MEAN CORPUSCULAR HEMOGLOBIN 29.5 pg (28-32); MEAN CORPUSCULAR VOLUME 92.2 fL (81-99); NEUTROPHILS # (AUTO) 7.8 (2.1-6.9); PLATELET COUNT 237 x10e3/uL (140-360); RED BLOOD COUNT 5.02 x10e6/uL (3.6-5.1); RED CELL DISTRIBUTION WIDTH 14.6 % (11.7-14.4)
[2020-07-20 20:44] LABS: ALANINE AMINOTRANSFERASE 10 IU/L (0-55); ALBUMIN 3.3 g/dL (3.5-5.0); ALBUMIN/GLOBULIN RATIO 0.8 (0.8-2.0); ALKALINE PHOSPHATASE 80 IU/L (40-150); ANION GAP 16.8 mmol/L (8-16); BLOOD UREA NITROGEN 9 mg/dL (7-26); BUN/CREATININE RATIO 13 (6-25); CALCIUM 9.7 mg/dL (8.4-10.2); CARBON DIOXIDE 30 mmol/L (22-29); CHLORIDE 94 mmol/L (98-107); CREATINE KINASE 8 IU/L (29-168); CREATININE, SERUM 0.72 mg/dL (0.57-1.11); EST GLOMERULAR FILTRATION RATE > 60 ML/MIN (60-); GLUCOSE 113 mg/dL (74-118); POTASSIUM 3.8 mmol/L (3.5-5.1); SODIUM 137 mmol/L (136-145)
[2020-07-20] MEDS ORDERED: IPRATROPIUM BROMIDE 0.02% 2.5 ML NEB NEB ONE (21:15)
[2020-07-20] MEDS ORDERED: METHYLPREDNISOLONE SOD SUCC 125 MG/2ML VIAL IV ONE (21:15)
[2020-07-20] MEDS ORDERED: LEVALBUTEROL HCL SOLN NEBU 1.25 MG/3 ML NEB INH ONE (21:15)
[2020-07-20 23:17] VITALS: BP 116/74
== END 2020-07-20 23:19 | disposition home or self-care (01) ==
LOC: ER 19:39
DX: J44.9 Chronic obstructive pulmonary disease, unspecified (principal); Z99.81 Dependence on supplemental oxygen; F17.210 Nicotine dependence, cigarettes, uncomplicated; Z20.822 Contact with and (suspected) exposure to COVID-19
CPT/HCPCS: 36415; 71045; 80053; 82550; 82553; 83880; 84484; 85025; 93005; 94640; 99283; J2930; U0002

== ENCOUNTER 2021-02-14 18:10 | Emergency (ER) | payer OTHER ==
[~2021-02-14] VITALS: Ht 165.1 cm; Wt 81.6 kg
[2021-02-14 18:46] LABS: BASOPHILS % 0.2 % (0.0-1.0); HEMATOCRIT 48.1 % (34.2-44.1); HEMOGLOBIN 15.4 g/dL (12.0-16.0); LYMPHOCYTES # (AUTO) 0.6 (1.0-3.2); LYMPHOCYTES % 4.6 % (18.0-39.1); MEAN CORPUSCULAR HEMOGLOBIN 30.3 pg (28-32); MEAN CORPUSCULAR VOLUME 94.5 fL (81-99); MONOCYTES # (AUTO) 0.2 (0.2-0.8); MONOCYTES % 1.3 % (4.4-11.3); NEUTROPHILS # (AUTO) 11.7 (2.1-6.9); NEUTROPHILS % 93.3 % (38.7-80.0); PLATELET COUNT 195 x10e3/uL (140-360); RED BLOOD COUNT 5.09 x10e6/uL (3.6-5.1); RED CELL DISTRIBUTION WIDTH 14.3 % (11.7-14.4)
[2021-02-14 19:06] LABS: ALBUMIN 3.4 g/dL (3.5-5.0); ALBUMIN/GLOBULIN RATIO 0.8 (0.8-2.0); ALKALINE PHOSPHATASE 83 IU/L (40-150); ANION GAP 17.6 mmol/L (8-16); BLOOD UREA NITROGEN 8 mg/dL (7-26); BUN/CREATININE RATIO 11 (6-25); CALCIUM 9.3 mg/dL (8.4-10.2); CARBON DIOXIDE 30 mmol/L (22-29); CHLORIDE 93 mmol/L (98-107); CREATININE, SERUM 0.76 mg/dL (0.57-1.11); EST GLOMERULAR FILTRATION RATE 77 ML/MIN (60-); GLUCOSE 173 mg/dL (74-118); POTASSIUM 3.6 mmol/L (3.5-5.1); SODIUM 137 mmol/L (136-145)
[2021-02-14 19:22] LABS: ALANINE AMINOTRANSFERASE < 6 IU/L (0-55)
[2021-02-14] MEDS ORDERED: AZITHROMYCIN250 MG PO (19:55)
[2021-02-14] MEDS ORDERED: PREDNISONE20 MG PO (19:55)
[2021-02-14] MEDS ORDERED: ALBUTEROL/IPRATROPIUM 3 ML NEB NEB ONE (20:00)
[2021-02-14] MEDS ORDERED: METHYLPREDNISOLONE SOD SUCC 125 MG/2ML VIAL IV ONE (20:00)
[2021-02-14] MEDS ORDERED: ZITHROMAX250 MG PO (21:26)
== END 2021-02-14 21:39 | disposition home or self-care (01) ==
LOC: ER 18:14
DX: R06.02 Shortness of breath (principal); J44.1 Chronic obstructive pulmonary disease with (acute) exacerbation; R05.9 Cough, unspecified; R73.9 Hyperglycemia, unspecified; I50.9 Heart failure, unspecified; E78.5 Hyperlipidemia, unspecified; K21.9 Gastro-esophageal reflux disease without esophagitis; Z20.822 Contact with and (suspected) exposure to COVID-19; F17.210 Nicotine dependence, cigarettes, uncomplicated
CPT/HCPCS: 36415; 71045; 80053; 85025; 93005; 94640; 94799; 99284; J2930; U0002

== ENCOUNTER 2021-11-19 06:52 | Inpatient (IN) | payer OTHER ==
[~2021-11-19] VITALS: Ht 165.1 cm; Wt 81.8 kg
[~2021-11-19 06:52] MED LIST changes: +AZITHROMYCIN250 MG PO; +ZITHROMAX250 MG PO
[2021-11-19] MEDS ORDERED: DEXAMETHASONE SOD PHOS 10 MG/1 ML VIAL IV STA (07:29)
[2021-11-19] MEDS ORDERED: ALBUTEROL SULF 0.083% NEB SOLN 3 ML NEB NEB STA (07:29)
[2021-11-19] MEDS ORDERED: IPRATROPIUM BROMIDE 0.02% 2.5 ML NEB NEB ONE (07:30)
[2021-11-19] MEDS ORDERED: DEXAMETHASONE SOD PHOS 10 MG/1 ML VIAL IM ONE (08:00)
[2021-11-19 08:11] LABS: BASOPHILS # (AUTO) 0.1 (0.0-0.1); BASOPHILS % 0.9 % (0.0-1.0); EOSINOPHILS # (AUTO) 0.2 (0.0-0.4); HEMATOCRIT 49.6 % (34.2-44.1); HEMOGLOBIN 15.1 g/dL (12.0-16.0); LYMPHOCYTES # (AUTO) 2.2 (1.0-3.2); LYMPHOCYTES % 38.8 % (18.0-39.1); MEAN CORPUSCULAR HEMOGLOBIN 30.3 pg (28-32); MEAN CORPUSCULAR HGB CONC 30.4 g/dL (31-35); MEAN CORPUSCULAR VOLUME 99.6 fL (81-99); MONOCYTES # (AUTO) 0.5 (0.2-0.8); MONOCYTES % 8.9 % (4.4-11.3); NEUTROPHILS # (AUTO) 2.7 (2.1-6.9); NEUTROPHILS % 48.2 % (38.7-80.0); PLATELET COUNT 204 x10e3/uL (140-360); RED BLOOD COUNT 4.98 x10e6/uL (3.6-5.1); RED CELL DISTRIBUTION WIDTH 13.8 % (11.7-14.4)
[2021-11-19 08:16] LABS: ANION GAP 13.3 mmol/L (8-16); CALCIUM 9.4 mg/dL (8.4-10.2); CREATININE, SERUM 0.72 mg/dL (0.57-1.11); POTASSIUM 3.3 mmol/L (3.5-5.1)
[2021-11-19] MEDS ORDERED: ASPIRIN 81 MG CHEW TAB PO ONE ×2 (09:00)
[2021-11-19] MEDS ORDERED: DIPHENHYDRAMINE HCL 25 MG CAP PO PRN (10:15)
[2021-11-19] MEDS ORDERED: FAMOTIDINE 20 MG TAB PO PRN (10:15)
[2021-11-19] MEDS ORDERED: METHYLPREDNISOLONE SOD SUCC 125 MG/2ML VIAL IV PRN (10:15)
[2021-11-19] MEDS ORDERED: DIPHENHYDRAMINE HCL INJ 50 MG/ML VIAL ONE ×2 (10:21→11:34)
[2021-11-19] MEDS ORDERED: FAMOTIDINE 20 MG/2 ML VIAL IV ONE ×2 (10:22→11:34)
[2021-11-19] MEDS ORDERED: HEPARIN SOD (PORCINE) 1000 UNIT/ML 30ML ONE (10:43)
[2021-11-19] MEDS ORDERED: NITROGLYCERIN/D5W 200 MCG/ML 250 ML ONE (10:44)
[2021-11-19] MEDS ORDERED: IOPAMIDOL 370 MG/ML 100 ML INFUS..BTL INJ ONE (10:44)
[2021-11-19] MEDS ORDERED: MIDAZOLAM HCL 2 MG/2 ML VIAL ONE ×3 (10:44→11:33)
[2021-11-19] MEDS ORDERED: SODIUM CHLORIDE 0.9% 1000ML 1,000 ML ONE (10:44)
[2021-11-19] MEDS ORDERED: HEPARIN SOD/SOD CHLORIDE 2,000 ML ONE (10:44)
[2021-11-19] MEDS ORDERED: FENTANYL CITRATE/PF 100MCG/2 ML INJ ONE (10:44)
[2021-11-19] MEDS ORDERED: LIDOCAINE 1% 10 ML MULTIDOSE VIAL IJ ONE (10:45)
[2021-11-19] MEDS ORDERED: BIVALRIUDIN 250 MG/VIAL VIAL IV ONE ×2 (11:13→11:33)
[2021-11-19] MEDS ORDERED: METHYLPREDNISOLONE SOD SUCC 125 MG/2ML VIAL ONE (11:34)
[2021-11-19] MEDS ORDERED: CLOPIDOGREL BISULFATE 75 MG TAB ONE (11:39)
[2021-11-19] MEDS ORDERED: SODIUM CHLORIDE 0.9% 1000ML 750 ML IV ONE (12:15)
[2021-11-19 14:13] VITALS: BP 128/75
[2021-11-19 14:30] VITALS: BP 128/75
[2021-11-19 15:17] VITALS: BP 128/75
[2021-11-19 15:27] LABS: CREATINE KINASE MB 1.6 ng/mL (0-5.0)
[2021-11-19 17:37] VITALS: BP 130/71
[2021-11-19] MEDS: METOPROLOL TARTRATE 25 MG TAB PO SCH (17:43)
[2021-11-19] MEDS ORDERED: FOLIC ACID0.8 M1 (17:55)
[2021-11-19 20:00] VITALS: BP 118/78
[2021-11-19 20:29] VITALS: BP 118/78
[2021-11-19] MEDS: ATORVASTATIN 40 MG TAB PO SCH (21:38)
[2021-11-20] VITALS (8 sets, daily range): BP systolic 124–145; BP diastolic 53–85
[2021-11-20 01:49] LABS: CREATINE KINASE 61 IU/L (29-168)
[2021-11-20 04:53] LABS: BASOPHILS % 0.1 % (0.0-1.0); HEMATOCRIT 41.2 % (34.2-44.1); HEMOGLOBIN 12.8 g/dL (12.0-16.0); LYMPHOCYTES # (AUTO) 0.6 (1.0-3.2); LYMPHOCYTES % 8.7 % (18.0-39.1); MEAN CORPUSCULAR HEMOGLOBIN 30.3 pg (28-32); MEAN CORPUSCULAR HGB CONC 31.1 g/dL (31-35); MEAN CORPUSCULAR VOLUME 97.4 fL (81-99); MONOCYTES # (AUTO) 0.2 (0.2-0.8); MONOCYTES % 3.3 % (4.4-11.3); NEUTROPHILS % 87.3 % (38.7-80.0); PLATELET COUNT 177 x10e3/uL (140-360); RED BLOOD COUNT 4.23 x10e6/uL (3.6-5.1); RED CELL DISTRIBUTION WIDTH 13.3 % (11.7-14.4)
[2021-11-20 05:12] LABS: ANION GAP 14.8 mmol/L (8-16); CALCIUM 9.5 mg/dL (8.4-10.2); CREATININE, SERUM 0.69 mg/dL (0.57-1.11); POTASSIUM 3.8 mmol/L (3.5-5.1)
[2021-11-20 05:28] LABS: CHOL/HDL RATIO 3.5 (3.0-3.6)
[2021-11-20 05:50] LABS: FREE THYROXINE INDEX 1.9722 (1.4-3.8); THYROID STIMULATING HORMONE 0.172 uIU/mL (0.350-4.940)
[2021-11-20] MEDS ORDERED: ALBUTEROL/IPRATROPIUM 3 ML NEB NEB PRN (06:15)
[2021-11-20] MEDS: ASPIRIN 81 MG CHEW TAB PO SCH (08:47)
[2021-11-20] MEDS: METOPROLOL TARTRATE 25 MG TAB PO SCH (08:48)
[2021-11-20] MEDS: CLOPIDOGREL BISULFATE 75 MG TAB PO SCH (08:48)
[2021-11-20] MEDS: PREDNISONE 20 MG TAB PO SCH ×2 (09:57→16:37)
[2021-11-20 10:05] LABS: CREATINE KINASE MB 3.6 ng/mL (0-5.0)
[2021-11-20] MEDS ORDERED: HYDROCODONE/APAP 5MG-325MG TAB PO PRN (13:00)
[2021-11-20] MEDS: ATORVASTATIN 40 MG TAB PO SCH (21:35)
[2021-11-21 00:26] VITALS: BP 148/71
[2021-11-21 05:00] VITALS: BP 160/58
[2021-11-21 05:45] LABS: HEMATOCRIT 43.9 % (34.2-44.1); HEMOGLOBIN 13.3 g/dL (12.0-16.0); LYMPHOCYTES % 10.4 % (18.0-39.1); MEAN CORPUSCULAR HEMOGLOBIN 30.2 pg (28-32); MEAN CORPUSCULAR HGB CONC 30.3 g/dL (31-35); MEAN CORPUSCULAR VOLUME 99.5 fL (81-99); MONOCYTES # (AUTO) 0.4 (0.2-0.8); MONOCYTES % 3.9 % (4.4-11.3); NEUTROPHILS # (AUTO) 7.8 (2.1-6.9); NEUTROPHILS % 85.3 % (38.7-80.0); PLATELET COUNT 187 x10e3/uL (140-360); RED BLOOD COUNT 4.41 x10e6/uL (3.6-5.1); RED CELL DISTRIBUTION WIDTH 13.2 % (11.7-14.4)
[2021-11-21 06:20] LABS: ALBUMIN 3.7 g/dL (3.5-5.0); ALBUMIN/GLOBULIN RATIO 1.1 (0.8-2.0); CALCIUM 9.4 mg/dL (8.4-10.2); CREATININE, SERUM 0.69 mg/dL (0.57-1.11)
[2021-11-21 08:02] VITALS: BP 131/69
[2021-11-21] MEDS ORDERED: ATORVASTATIN CA40 MG PO (08:19)
[2021-11-21] MEDS ORDERED: ZITHROMAX500 MG PO (08:19)
[2021-11-21] MEDS ORDERED: PREDNISONE10 MG PO (08:19)
[2021-11-21] MEDS ORDERED: PLAVIX75 MG PO (08:19)
[2021-11-21] MEDS ORDERED: ASPIRIN CHEW81 MG PO (08:19)
[2021-11-21] MEDS: PREDNISONE 20 MG TAB PO SCH (09:31)
[2021-11-21] MEDS: CLOPIDOGREL BISULFATE 75 MG TAB PO SCH (09:31)
[2021-11-21] MEDS: ASPIRIN 81 MG CHEW TAB PO SCH (09:32)
[2021-11-21 09:50] VITALS: BP 131/69
== END 2021-11-21 09:50 | disposition home or self-care (01) | DRG 246 ==
LOC: ER 07:01 → ERHOLD 09:00 → OBSVTOIN 12:09 → MED/SURG2 14:06
PROVIDERS: ADMIT Internal Medicine; ATTEND Internal Medicine
PROC: 4A023N7 Measurement of Cardiac Sampling and Pressure, Left Heart, Percutaneous Approach (ICD-10-PCS; principal; 2021-11-19)
PROC: B2111ZZ Fluoroscopy of Multiple Coronary Arteries using Low Osmolar Contrast (ICD-10-PCS; principal; 2021-11-19)
PROC: 027035Z Dilation of Coronary Artery, One Artery with Two Drug-eluting Intraluminal Devices, Percutaneous Approach (ICD-10-PCS; principal; 2021-11-19)
DX: I25.110 Atherosclerotic heart disease of native coronary artery with unstable angina pectoris (principal); I21.4 Non-ST elevation (NSTEMI) myocardial infarction; J96.11 Chronic respiratory failure with hypoxia; J44.1 Chronic obstructive pulmonary disease with (acute) exacerbation; Z95.5 Presence of coronary angioplasty implant and graft; E66.09 Other obesity due to excess calories; Z68.30 Body mass index [BMI] 30.0-30.9, adult; Z99.81 Dependence on supplemental oxygen; F17.210 Nicotine dependence, cigarettes, uncomplicated; K21.9 Gastro-esophageal reflux disease without esophagitis; E78.5 Hyperlipidemia, unspecified; Z20.822 Contact with and (suspected) exposure to COVID-19; I10 Essential (primary) hypertension; K74.60 Unspecified cirrhosis of liver; Z88.2 Allergy status to sulfonamides; Z91.041 Radiographic dye allergy status; Z88.0 Allergy status to penicillin; Z91.013 Allergy to seafood
CPT/HCPCS: 36415; 71045; 71046; 76937; 80048; 80053; 80061; 82550; 82553; 83036; 83690; 83735; 83880; 84436; 84443; 84479; 84484; 85025; 92928; 93005; 93458; 94640; 94799; 99152; 99153; 99284; C1760; C1766; C1769; C1887; J0583; J1100; J1200; J1644; J2250; J2930; J3010; J7030; J7512; Q9967

== ENCOUNTER 2022-01-19 03:08 | Emergency (ER) | payer OTHER ==
[~2022-01-19] VITALS: Ht 165.1 cm; Wt 81.6 kg
[~2022-01-19 03:08] MED LIST changes: +ATORVASTATIN CA40 MG PO; +FOLIC ACID0.8 M1; +PLAVIX75 MG PO; +PREDNISONE10 MG PO
[2022-01-19] MEDS ORDERED: ALBUTEROL SULF 0.083% NEB SOLN 3 ML NEB NEB STA (03:27)
[2022-01-19] MEDS ORDERED: METHYLPREDNISOLONE SOD SUCC 125 MG/2ML VIAL IV ONE (03:30)
[2022-01-19] MEDS ORDERED: IPRATROPIUM BROMIDE 0.02% 2.5 ML NEB NEB ONE (03:30)
[2022-01-19] MEDS ORDERED: ACETAMINOPHEN 325 MG TAB PO ONE (03:30)
[2022-01-19] MEDS ORDERED: SODIUM CHLORIDE 0.9% 1000ML 1,000 ML IV ONE (03:30)
[2022-01-19 03:57] LABS: BASOPHILS % 0.2 % (0.0-1.0); HEMATOCRIT 51.3 % (34.2-44.1); HEMOGLOBIN 15.3 g/dL (12.0-16.0); LYMPHOCYTES # (AUTO) 0.3 (1.0-3.2); LYMPHOCYTES % 4.3 % (18.0-39.1); MEAN CORPUSCULAR HEMOGLOBIN 29.9 pg (28-32); MEAN CORPUSCULAR HGB CONC 29.8 g/dL (31-35); MEAN CORPUSCULAR VOLUME 100.2 fL (81-99); MONOCYTES # (AUTO) 0.4 (0.2-0.8); NEUTROPHILS # (AUTO) 5.2 (2.1-6.9); NEUTROPHILS % 89.2 % (38.7-80.0); PLATELET COUNT 133 x10e3/uL (140-360); RED BLOOD COUNT 5.12 x10e6/uL (3.6-5.1); RED CELL DISTRIBUTION WIDTH 14.8 % (11.7-14.4)
[2022-01-19 05:07] LABS: ANION GAP 18.7 mmol/L (8-16); CALCIUM 8.4 mg/dL (8.4-10.2); CREATININE, SERUM 1.58 mg/dL (0.57-1.11); POTASSIUM 4.7 mmol/L (3.5-5.1)
[2022-01-19 05:31] LABS: ALBUMIN 3.7 g/dL (3.5-5.0); ALBUMIN/GLOBULIN RATIO 1.1 (0.8-2.0); CREATINE KINASE MB 5.2 ng/mL (0-5.0)
[2022-01-19] MEDS ORDERED: ASPIRIN 81 MG CHEW TAB PO ONE (05:45)
[2022-01-19 08:29] VITALS: BP 129/87
== END 2022-01-19 08:50 | disposition other institution (70) ==
LOC: ER 03:10
DX: R50.9 Fever, unspecified (principal); J96.11 Chronic respiratory failure with hypoxia; I21.4 Non-ST elevation (NSTEMI) myocardial infarction; U07.1 COVID-19; R77.8 Other specified abnormalities of plasma proteins; J44.1 Chronic obstructive pulmonary disease with (acute) exacerbation; F17.210 Nicotine dependence, cigarettes, uncomplicated
CPT/HCPCS: 36415; 71045; 80053; 82550; 82553; 83605; 83880; 84484; 85025; 87040; 93005; 94640; 94799; 99284; J0696; J2930; J7030; U0002

== ENCOUNTER → 2023-09-09 | Outpatient (REF) | payer MEDICARE, OTHER ==
[~2023-09-09] MED LIST changes: +AMLODIPINE BESY10 MG PO; +CALCIUM PO; +SYMBICORT 16010.2 GM INH; +VITAMIN D350 MCG PO
== END ==
LOC: CARD 08:31
PROVIDERS: ATTEND Internal Medicine
DX: M79.672 Pain in left foot (principal); M79.671 Pain in right foot
CPT/HCPCS: 93925

== ENCOUNTER 2024-02-12 03:04 | Inpatient (IN) | payer MEDICARE, OTHER ==
[2024-02-12] VITALS (14 sets, daily range): BP systolic 101–136; BP diastolic 57–74; PULSE 89–112; RESP 18–22; TEMP 98.1–98.5; O2SAT 92–98
[~2024-02-12] VITALS: Ht 170.2 cm; Wt 92.7 kg
[2024-02-12] MEDS: ALBUTEROL/IPRATROPIUM 3 ML NEB NEB STA (03:22)
[2024-02-12 03:30] LABS: BASOPHILS % 0.2 % (0.0-1.0); EOSINOPHILS % 0.1 % (0.0-6.0); HEMATOCRIT 43.3 % (34.2-44.1); HEMOGLOBIN 13.1 g/dL (12.0-16.0); LYMPHOCYTES # (AUTO) 1.2 (1.0-3.2); LYMPHOCYTES % 7.2 % (18.0-39.1); MEAN CORPUSCULAR HEMOGLOBIN 27.1 pg (28-32); MEAN CORPUSCULAR HGB CONC 30.3 g/dL (31-35); MEAN CORPUSCULAR VOLUME 89.5 fL (81-99); MONOCYTES # (AUTO) 1.1 (0.2-0.8); MONOCYTES % 6.5 % (4.4-11.3); NEUTROPHILS # (AUTO) 14.7 (2.1-6.9); NEUTROPHILS % 85.4 % (38.7-80.0); PLATELET COUNT 331 x10e3/uL (140-360); RED BLOOD COUNT 4.84 x10e6/uL (3.6-5.1); RED CELL DISTRIBUTION WIDTH 15.1 % (11.7-14.4); WHITE BLOOD COUNT 17.21 x10e3/uL (4.8-10.8)
[2024-02-12] MEDS ORDERED: SODIUM CHLORIDE 0.9% 1000ML 1,000 ML IV SCH (03:45)
[2024-02-12 03:47] LABS: CORONAVIRUS COVID-19 AG NEGATIVE (NEGATIVE); INFLUENZA A AG NEGATIVE (NEGATIVE); INFLUENZA B AG NEGATIVE (NEGATIVE)
[2024-02-12 03:49] LABS: ALBUMIN 3.8 g/dL (3.5-5.0); ALKALINE PHOSPHATASE 94 IU/L (40-150); ANION GAP 17.8 mmol/L (8-16); BILIRUBIN,TOTAL 0.9 mg/dL (0.2-1.2); BLOOD UREA NITROGEN 8 mg/dL (7-26); BUN/CREATININE RATIO 8 (6-25); CALCIUM 9.6 mg/dL (8.4-10.2); CARBON DIOXIDE 33 mmol/L (22-29); CHLORIDE 85 mmol/L (98-107); CREATINE KINASE 41 IU/L (29-168); CREATININE, SERUM 0.95 mg/dL (0.57-1.11); EST GLOMERULAR FILTRATION RATE 66 ML/MIN (>=60); GLUCOSE 173 mg/dL (74-118); SODIUM 133 mmol/L (136-145); TOTAL PROTEIN 7.8 g/dL (6.5-8.1)
[2024-02-12 03:56] LABS: TROPONIN I 0.023 ng/mL (0-0.300)
[2024-02-12 04:01] LABS: ALANINE AMINOTRANSFERASE < 6 IU/L (0-55)
[2024-02-12 04:03] LABS: POTASSIUM 2.8 mmol/L (3.5-5.1)
[2024-02-12] MEDS: ACETAMINOPHEN 325 MG TAB PO STA (04:05)
[2024-02-12] MEDS: SODIUM CHLORIDE 0.9% 1000ML 1,000 ML IV STA (04:06)
[2024-02-12] MEDS: POTASSIUM CHLORIDE 20 MEQ TAB CR PO STA (04:08)
[2024-02-12] MEDS: POTASSIUM CHLORIDE 20MEQ/100ML 100 ML IV STA (04:09)
[2024-02-12] MEDS: SODIUM CHLORIDE 0.9% 1000ML 1,000 ML IV SCH (04:15)
[2024-02-12] MEDS ORDERED: STIOLTO RESPIMAT4 G1 (05:56)
[2024-02-12] MEDS ORDERED: B12 ACTIVE1000 MCG (05:56)
[2024-02-12] MEDS ORDERED: ONDANSETRON HCL INJ 2MG/ML 2ML 2 MG/ML VIAL IV PRN (11:00)
[2024-02-12] MEDS ORDERED: ACETAMINOPHEN 325 MG TAB PO PRN (11:00)
[2024-02-12] MEDS: METHYLPREDNISOLONE SOD SUCC 40 MG/ML VIAL 1ML IV SCH (11:44)
[2024-02-12 11:55] LABS: ANION GAP 12.4 mmol/L (8-16); CREATININE, SERUM 0.79 mg/dL (0.57-1.11); MAGNESIUM 1.4 MG/DL (1.3-2.1); PHOSPHORUS 4.6 MG/DL (2.3-4.7)
[2024-02-12 11:56] LABS: POTASSIUM 3.4 mmol/L (3.5-5.1)
[2024-02-12] MEDS: ALBUTEROL/IPRATROPIUM 3 ML NEB NEB SCH (12:48)
[2024-02-12 13:07] LABS: TROPONIN I 0.024 ng/mL (0-0.300)
[2024-02-12] MEDS: BUDESONIDE/FORMOTEROL 160/4.5MCG INHALER INH SCH (19:58)
[2024-02-12] MEDS: ATORVASTATIN 40 MG TAB PO SCH (21:03)
[2024-02-13] VITALS (13 sets, daily range): BP systolic 102–139; BP diastolic 58–68; PULSE 81–106; RESP 18–22; TEMP 95.7–98.9; O2SAT 88–97
[2024-02-13] MEDS: FAMOTIDINE 20 MG TAB PO SCH (05:25)
[2024-02-13] MEDS: AMLODIPINE BESYLATE 10 MG TAB PO SCH (05:25)
[2024-02-13] MEDS ORDERED: CALCIUM PO SCH (06:00)
[2024-02-13 06:33] LABS: BASOPHILS % 0.1 % (0.0-1.0); HEMATOCRIT 34.4 % (34.2-44.1); HEMOGLOBIN 10.4 g/dL (12.0-16.0); LYMPHOCYTES # (AUTO) 0.5 (1.0-3.2); LYMPHOCYTES % 4.6 % (18.0-39.1); MEAN CORPUSCULAR HEMOGLOBIN 27.4 pg (28-32); MEAN CORPUSCULAR HGB CONC 30.2 g/dL (31-35); MEAN CORPUSCULAR VOLUME 90.8 fL (81-99); MONOCYTES # (AUTO) 0.2 (0.2-0.8); MONOCYTES % 1.5 % (4.4-11.3); NEUTROPHILS # (AUTO) 10.7 (2.1-6.9); NEUTROPHILS % 93.5 % (38.7-80.0); PLATELET COUNT 271 x10e3/uL (140-360); RED BLOOD COUNT 3.79 x10e6/uL (3.6-5.1); RED CELL DISTRIBUTION WIDTH 15.2 % (11.7-14.4); WHITE BLOOD COUNT 11.48 x10e3/uL (4.8-10.8)
[2024-02-13 07:07] LABS: ALBUMIN/GLOBULIN RATIO 0.9 (0.8-2.0); ANION GAP 13.8 mmol/L (8-16); BILIRUBIN,TOTAL 0.3 mg/dL (0.2-1.2); CALCIUM 9.4 mg/dL (8.4-10.2); CREATININE, SERUM 0.75 mg/dL (0.57-1.11); POTASSIUM 3.8 mmol/L (3.5-5.1); TOTAL PROTEIN 6.2 g/dL (6.5-8.1)
[2024-02-13 08:10] LABS: TROPONIN I 0.025 ng/mL (0-0.300)
[2024-02-13] MEDS: CLOPIDOGREL BISULFATE 75 MG TAB PO SCH (10:00)
[2024-02-13] MEDS: ASPIRIN 81 MG CHEW TAB PO SCH (10:00)
[2024-02-13] MEDS: FOLIC ACID 1 MG TAB PO SCH (10:00)
[2024-02-13] MEDS: FUROSEMIDE 20 MG TAB PO SCH (10:00)
[2024-02-13] MEDS: CHOLECALCIFEROL 1,000 UNIT TAB PO SCH (10:01)
[2024-02-13] MEDS: BENZONATATE 100 MG CAP PO SCH (15:12)
[2024-02-13] MEDS: ENOXAPARIN SOD INJ 40 MG/0.4 ML SYR SC SCH (17:08)
[2024-02-13] MEDS ORDERED: ALBUTEROL 90 MCG/ACT INHALER INH PRN (21:30)
[2024-02-14] VITALS (10 sets, daily range): BP systolic 119–144; BP diastolic 60–68; PULSE 79–108; RESP 18–22; TEMP 98–98.5; O2SAT 90–100
[2024-02-14] MEDS: ALBUTEROL/IPRATROPIUM 3 ML NEB NEB PRN (01:51)
[2024-02-14 11:59] LABS: CLARITY,URINE CLEAR (CLEAR); COLOR,URINE YELLOW (YELLOW); PH,URINE 6.5 (5 - 7)
[2024-02-14 12:00] LABS: BILIRUBIN,URINE NEGATIVE (NEGATIVE); GLUCOSE, URINE NEGATIVE (NEGATIVE); KETONES,URINE NEGATIVE (NEGATIVE); LEUKOCYTE ESTERASE ,URINE NEGATIVE (NEGATIVE); NITRITE,URINE NEGATIVE (NEGATIVE); PROTEIN,URINE DIPSTICK NEGATIVE (NEGATIVE); URINE UROBILINOGEN 0.2 mg/dL (0.2 - 1)
[2024-02-14 12:14] LABS: BACTERIA,URINE RARE /HPF; EPITHELIAL CELLS,URINE MODERATE /LPF; WBC,URINE (MAN) 0-5 /HPF (0-5)
[2024-02-14 12:15] LABS: YEAST,URINE FEW
[2024-02-15] VITALS (8 sets, daily range): BP systolic 114–154; BP diastolic 61–84; PULSE 87–112; RESP 10–21; TEMP 98.2–98.4; O2SAT 89–96
[2024-02-15] MEDS ORDERED: BENZONATATE100 MG PO (10:30)
[2024-02-15] MEDS ORDERED: DOXYCYCLINE HY100 MG PO (10:30)
[2024-02-15] MEDS ORDERED: Folic Acid PO (10:30)
[2024-02-15] MEDS ORDERED: PREDNISONE20 MG PO (10:30)
[2024-02-15] MEDS ORDERED: DIFLUCAN100 MG PO (10:31)
[2024-02-15] MEDS ORDERED: FLUCONAZOLE 100 MG TAB PO ONE (11:00)
== END 2024-02-15 14:16 | disposition home or self-care (01) | DRG 190 ==
LOC: ER 03:08 → ERHOLD 03:43 → MED/SURG2 04:46
PROVIDERS: ADMIT Internal Medicine; ATTEND Internal Medicine
DX: J44.1 Chronic obstructive pulmonary disease with (acute) exacerbation (principal); J96.21 Acute and chronic respiratory failure with hypoxia; E87.1 Hypo-osmolality and hyponatremia; Z99.81 Dependence on supplemental oxygen; I11.0 Hypertensive heart disease with heart failure; I50.9 Heart failure, unspecified; K74.60 Unspecified cirrhosis of liver; I25.10 Atherosclerotic heart disease of native coronary artery without angina pectoris; E87.6 Hypokalemia; K21.9 Gastro-esophageal reflux disease without esophagitis; G62.9 Polyneuropathy, unspecified; E78.5 Hyperlipidemia, unspecified; Z11.52 Encounter for screening for COVID-19; Z79.51 Long term (current) use of inhaled steroids; Z79.02 Long term (current) use of antithrombotics/antiplatelets; Z79.82 Long term (current) use of aspirin; Z95.5 Presence of coronary angioplasty implant and graft; Z90.49 Acquired absence of other specified parts of digestive tract; Z88.2 Allergy status to sulfonamides; Z88.1 Allergy status to other antibiotic agents; Z88.0 Allergy status to penicillin; Z91.041 Radiographic dye allergy status; Z88.8 Allergy status to other drugs, medicaments and biological substances; Z91.013 Allergy to seafood; Z91.018 Allergy to other foods; Z87.891 Personal history of nicotine dependence
CPT/HCPCS: 36415; 71045; 80048; 80053; 81001; 82550; 83605; 83690; 83735; 83880; 84100; 84484; 85025; 87040; 93005; 94640; 94799; 99284; J0696; J1650; J2919; J3480; J7030; J7050

== ENCOUNTER 2024-08-30 13:09 | Outpatient (RCR) | payer MEDICARE, OTHER ==
[~2024-08-30 13:09] MED LIST changes: +B12 ACTIVE1000 MCG; +BENZONATATE100 MG PO; +DIFLUCAN100 MG PO; +DOXYCYCLINE HY100 MG PO; +Folic Acid PO; +STIOLTO RESPIMAT4 G1
== END 2024-09-22 ==
LOC: RESP 13:09
PROVIDERS: ATTEND Internal Medicine
DX: I26.99 Other pulmonary embolism without acute cor pulmonale (principal)
CPT/HCPCS: 94799